=== PATIENT | male | born 1955 | race Hispanic/Latino ===

== ENCOUNTER 2020-06-11 13:23 | Inpatient (IN) | payer SELFPAY ==
[2020-06-11] VITALS (8 sets, daily range): BP systolic 115–144; BP diastolic 64–79
[~2020-06-11] VITALS: Ht 175.3 cm; Wt 81.6 kg
[2020-06-11] MEDS ORDERED: CEFTRIAXONE SOD 1 GM/NS 50 ML 50 ML IV SCH (14:00)
[2020-06-11] MEDS ORDERED: DEXAMETHASONE SOD PHOS 10 MG/1 ML VIAL IV ONE (14:00)
[2020-06-11] MEDS ORDERED: AZITHROMYCIN 500MG/NS 250 ML 250 ML IV NR (14:00)
[2020-06-11 14:32] LABS: BASOPHILS % 0.2 % (0.0-1.0); HEMATOCRIT 26.8 % (38.2-49.6); LYMPHOCYTES # (AUTO) 0.3 (1.0-3.2); LYMPHOCYTES % 5.2 % (18.0-39.1); MEAN CORPUSCULAR HEMOGLOBIN 30.7 pg (28-32); MEAN CORPUSCULAR HGB CONC 33.6 g/dL (31-35); MEAN CORPUSCULAR VOLUME 91.5 fL (81-99); MONOCYTES # (AUTO) 0.3 (0.2-0.8); MONOCYTES % 5.9 % (4.4-11.3); NEUTROPHILS # (AUTO) 4.6 (2.1-6.9); NEUTROPHILS % 87.9 % (38.7-80.0); PLATELET COUNT 114 x10e3/uL (140-360); RED BLOOD COUNT 2.93 x10e6/uL (4.3-5.7)
[2020-06-11 14:53] LABS: ALBUMIN 3.5 g/dL (3.5-5.0); ALBUMIN/GLOBULIN RATIO 0.9 (0.8-2.0); ANION GAP 18.4 mmol/L (8-16); CALCIUM 8.3 mg/dL (8.4-10.2); CREATININE, SERUM 1.62 mg/dL (0.72-1.25); POTASSIUM 3.4 mmol/L (3.5-5.1)
[2020-06-11 15:00] LABS: CREATINE KINASE MB 0.9 ng/mL (0-5.0)
[2020-06-11] MEDS ORDERED: DEXAMETHASONE SOD PHOS INJ 4 MG/ML VIAL IV ONE (15:00)
--- OUTSIDE RECORDS SUMMARY | 2020-06-11 15:00 | XMS REPORT | Clinical Summary ---
Author Author [facility] Organization [facility] Address Unknown Phone Unavailable Care Team Providers Care Emt Dispatcher Name Role Phone Mayra Treviño MD PCP Allergies Comments Active Allergy Reactions Severity Noted Date Hyperkalemia Enalapril Other 12/01/2009 Medications End Date Status Medication Sig Dispensed Refills Start Date Active blood glucose meter Use as 1 Kit 0 (PRECISION XTRA directed.. 7 GLUCOMETER)Indications: Poorly controlled diabetes mellitus Active clotrimazole (LOTRIMIN) 1 Apply to 30 g 4 % topical affected area 0 creamIndications: Nail 2 times daily fungus To nails and affected area on feet for fungus. Active glimepiride (AMARYL) 4 mg Take 2 180 tablet 1 tabletIndications: tablets by 0 Uncontrolled type 2 mouth daily diabetes mellitus without (with complication, without breakfast). long-term current use of insulin Active linaGLIPtin (TRADJENTA) 5 Take 1 tablet 90 tablet 1 mg tabletIndications: by mouth 0 Uncontrolled type 2 daily. diabetes mellitus without complication, without long-term current use of insulin Active hydroCHLOROthiazide Take 1 tablet 90 tablet 1 12/29 (HYDRODIURIL) 25 mg by mouth 0 tabletIndications: daily. Essential hypertension with goal blood pressure less than 140/90 Active amLODIPine (NORVASC) 10 Take 1 tablet 90 tablet 1 mg tabletIndications: by mouth 0 Hypertension, unspecified daily. type, Medication refill Active valsartan (DIOVAN) 80 mg Take 1 tablet 90 tablet 1 tabletIndications: by mouth 0 Essential hypertension daily. with goal blood pressure less than 140/90 Active atorvastatin (LIPITOR) 40 Take 1 tablet 90 tablet 1 mg tabletIndications: by mouth at 0 Dyslipidemia bedtime nightly. Active metFORMIN (GLUCOPHAGE) Take 1 tablet 180 tablet 1 0 1,000 mg by mouth 2 0 tabletIndications: times daily Uncontrolled type 2 (with meals). diabetes mellitus without complication, without long-term current use of insulin Active blood glucose (PRECISION Use 2 times 50 Each 11 0 XTRA TEST STRIPS) test weekly. 0 stripsIndications: Uncontrolled type 2 diabetes mellitus without complication, without long-term current use of insulin Active lancets 28 Use 2 times 100 Each 11 gaugeIndications: weekly as 0 Uncontrolled type 2 directed. diabetes mellitus without complication, without long-term current use of insulin 11/04/2019 Discontinued (Therapy comple michelle) clotrimazole (LOTRIMIN) 1 Apply to 30 g 11 % topical affected area 7 creamIndications: 2 times Onychomycosis daily. 01/18/2020 Discontinued (Reorder) lancets 28 Use 2 times 100 Each 11 gaugeIndications: weekly as 8 Uncontrolled type 2 directed. diabetes mellitus without complication, without long-term current use of insulin 07/11/2019 Discontinued blood glucose (PRECISION Use 2 times 50 Each 11 0 XTRA TEST STRIPS) test weekly. 8 stripsIndications: Uncontrolled type 2 diabetes mellitus without complication, without long-term current use of insulin 07/08/2019 Discontinued atorvastatin (LIPITOR) 40 Take 1 tablet 90 tablet 1 mg tabletIndications: by mouth at 8 Dyslipidemia bedtime nightly. 11/04/2019 Discontinued (Therapy comple michelle) naproxen (NAPROSYN) 500 Take 1 tablet 30 tablet 0 mg tabletIndications: by mouth 2 8 Pain of right heel times daily (with meals). 07/01/2019 Discontinued (Reorder) hydroCHLOROthiazide Take 1 tablet 90 tablet 1 10/31 (HYDRODIURIL) 25 mg by mouth 9 tabletIndications: daily. Essential hypertension with goal blood pressure less than 140/90 09/09/2019 Discontinued (Reorder) linagliptin (TRADJENTA) 5 Take 1 tablet 90 tablet 1 mg tabletIndications: by mouth 9 Uncontrolled type 2 daily. diabetes mellitus without complication, without long-term current use of insulin 06/17/2019 Discontinued amLODIPine (NORVASC) 10 Take 1 tablet 90 tablet 0 mg tabletIndications: by mouth 9 Hypertension, unspecified daily Please type, Medication refill see PCP for future refills. 07/08/2019 Discontinued glimepiride (AMARYL) 4 mg Take 2 180 tablet 0 tabletIndications: tablets by 9 Uncontrolled type 2 mouth daily diabetes mellitus without (with complication, without breakfast). long-term current use of insulin 08/07/2019 Discontinued (Reorder) metFORMIN (GLUCOPHAGE) Take 1 tablet 180 tablet 0 0 1,000 mg by mouth 2 9 tabletIndications: times daily Uncontrolled type 2 (with meals) diabetes mellitus without PLEASE see complication, without PCP for long-term current use of future insulin refills. 08/12/2019 Discontinued Valsartan 80 mg Take 1 tablet 90 tablet 0 05/14/20 1 tabletIndications: by mouth 9 Essential hypertension daily PLEASE with goal blood pressure see PCP for less than 140/90 future refills. 10/11/2019 Discontinued (Reorder) amLODIPine (NORVASC) 10 Take 1 tablet 90 tablet 0 mg tabletIndications: by mouth 9 Hypertension, unspecified daily Please type, Medication refill see PCP for future refills. 10/11/2019 Discontinued (Reorder) hydroCHLOROthiazide Take 1 tablet 90 tablet 0 (HYDRODIURIL) 25 mg by mouth 9 tabletIndications: daily. Essential hypertension with goal blood pressure less than 140/90 08/05/2019 Discontinued (Reorder) atorvastatin (LIPITOR) 40 Take 1 tablet 30 tablet 0 mg tabletIndications: by mouth at 9 Dyslipidemia bedtime nightly Please see pcp for future refills. 08/12/2019 Discontinued glimepiride (AMARYL) 4 mg Take 2 60 tablet 0 tabletIndications: tablets by 9 Uncontrolled type 2 mouth daily diabetes mellitus without (with complication, without breakfast) long-term current use of Please see insulin pcp for future refills. 01/18/2020 Discontinued (Reorder) blood glucose (PRECISION Use 2 times 50 Each 1 0 XTRA TEST STRIPS) test weekly. 9 stripsIndications: Uncontrolled type 2 diabetes mellitus without complication, without long-term current use of insulin 10/11/2019 Discontinued (Reorder) atorvastatin (LIPITOR) 40 Take 1 tablet 30 tablet 0 mg tabletIndications: by mouth at 9 Dyslipidemia bedtime nightly Please see pcp for future refills. 10/11/2019 Discontinued (Reorder) metFORMIN (GLUCOPHAGE) Take 1 tablet 120 tablet 0 1 1,000 mg by mouth 2 9 tabletIndications: times daily Uncontrolled type 2 (with meals) diabetes mellitus without PLEASE see MD complication, without for future long-term current use of refills. insulin 10/11/2019 Discontinued (Reorder) valsartan (DIOVAN) 80 mg Take 1 tablet 30 tablet 0 tabletIndications: by mouth 9 Essential hypertension daily PLEASE with goal blood pressure see PCP for less than 140/90 future refills. 09/10/2019 Discontinued glimepiride (AMARYL) 4 mg Take 2 60 tablet 0 tabletIndications: tablets by 9 Uncontrolled type 2 mouth daily diabetes mellitus without (with complication, without breakfast) long-term current use of Please see insulin pcp for future refills. 10/11/2019 Discontinued (Reorder) linaGLIPtin (TRADJENTA) 5 Take 1 tablet 90 tablet 1 mg tabletIndications: by mouth 9 Uncontrolled type 2 daily. diabetes mellitus without complication, without long-term current use of insulin 10/11/2019 Discontinued (Reorder) glimepiride (AMARYL) 4 mg Take 2 60 tablet 0 tabletIndications: tablets by 9 Uncontrolled type 2 mouth daily diabetes mellitus without (with complication, without breakfast) long-term current use of Please see insulin pcp for future refills. 01/18/2020 Discontinued (Reorder) glimepiride (AMARYL) 4 mg Take 2 180 tablet 1 tabletIndications: tablets by 9 Uncontrolled type 2 mouth daily diabetes mellitus without (with complication, without breakfast) long-term current use of Please see insulin pcp for future refills. 01/18/2020 Discontinued (Reorder) linaGLIPtin (TRADJENTA) 5 Take 1 tablet 90 tablet 1 mg tabletIndications: by mouth 9 Uncontrolled type 2 daily. diabetes mellitus without complication, without long-term current use of insulin 01/18/2020 Discontinued (Reorder) hydroCHLOROthiazide Take 1 tablet 90 tablet 1 09/29 (HYDRODIURIL) 25 mg by mouth 9 tabletIndications: daily. Essential hypertension with goal blood pressure less than 140/90 01/18/2020 Discontinued (Reorder) amLODIPine (NORVASC) 10 Take 1 tablet 90 tablet 1 mg tabletIndications: by mouth 9 Hypertension, unspecified daily Please type, Medication refill see PCP for future refills. 01/18/2020 Discontinued (Reorder) valsartan (DIOVAN) 80 mg Take 1 tablet 90 tablet 1 tabletIndications: by mouth 9 Essential hypertension daily PLEASE with goal blood pressure see PCP for less than 140/90 future refills. 01/18/2020 Discontinued (Reorder) atorvastatin (LIPITOR) 40 Take 1 tablet 90 tablet 1 mg tabletIndications: by mouth at 9 Dyslipidemia bedtime nightly Please see pcp for future refills. 01/18/2020 Discontinued (Reorder) metFORMIN (GLUCOPHAGE) Take 1 tablet 180 tablet 1 1 1,000 mg by mouth 2 9 tabletIndications: times daily Uncontrolled type 2 (with meals) diabetes mellitus without PLEASE see MD complication, without for future long-term current use of refills. insulin Active Problems Problem Noted Date Hypertensive retinopathy of both eyes 11/08/2019 Proliferative diabetic retinopathy of both eyes with macular edema 10/14/2019 associated with type 2 diabetes mellitu s Combined form of age-related cataract, right eye Personal history of noncompliance with medical treatm ent, presenting 05/30/2018 hazards to health - PT WAS SEEN BY GI - ADVISED COLONOSCOPY - DECLINED, WAS ADVISED BE BY GI - NOT DONE EITHER - PL EASE CALL GI Hyperkalemia 05/11/2018 Poorly controlled diabetes mellitus 03/14/2017 Nuclear cataract of left eye 01/26/2017 Erectile dysfunction 10/15/2009 Type II diabetes mellitus Essential hypertension, benign Other and unspecified hyperlipidemia Proteinuria Resolved Problems Problem Noted Date Resolved Date NPDR (nonproliferative diabetic retinopathy) 11/24/2016 10/14/2019 Severe nonproliferative diabetic retinopathy of both eyes, due to 06/28/2016 10/14/2019 underlying condition, with macular aries a Encounters Care Team Description Date Type Specialty Sheryl Schultz RN 06/08/2020 Nurse Triage Claudia Schmid RN 06/08/2020 Nurse Triage Yessica Preciado, NERY 06/06/2020 Nurse Triage Chana Lemus 05/21/2020 Patient Patient Education Education Wm Ravi, Fellow(MD) Anemia, unspecified type (Primary Dx) 04/20/2020 Office Visit Hematology Wm Ravi, Fellow(MD) 04/19/2020 Orders Only Hematology Carine Razo, MYRA 03/11/2020 Antwan Jones RN 03/10/2020 Patient Patient Education Education Carine Razo LD 02/20/2020 Nutrition Remi Harris Kylee 02/18/2020 Nutrition Carine Walker LD 01/29/2020 Antwan Jones RN 01/28/2020 Patient Patient Education Education Harish Ngo MD Proliferative diabetic retinopathy of naveed th eyes with macular edema associated with type 2 diabetes mellitus (Primary Dx) 01/17/2020 Office Visit Ophthalmology Kylee Harris 01/07/2020 Harihs Apple MD Proliferative diabetic retinopathy of naveed th eyes with macular edema associated with type 2 diabetes mellitus (Primary Dx) 12/30/2019 Office Visit Ophthalmology Kylee Harris 12/24/2019 Nutrition Mayra Parry MD Uncontrolled diabetes mellitus type 2 wi thout complications (Primary Dx); Anemia, unspecified type; Nail fungus 12/16/2019 Office Visit [facility] Kylee Harris 12/10/2019 Antwan Jones RN 11/28/2019 Patient Patient Education Education Kylee Harris 11/12/2019 Harish Apple MD Proliferative diabetic retinopathy of naveed th eyes with macular edema associated with type 2 diabetes mellitus (Primary Dx) 11/11/2019 Office Visit Ophthalmology Dipesh Mclean MD Proliferative diabetic retinopathy of naveed th eyes with macular edema associated with type 2 diabetes mellitus (Primary Dx); Combined form of age-related cataract, right eye; Hypertensive retinopathy of both eyes 11/08/2019 Office Visit Ophthalmology Mayra Treviño MD Need for vaccination (Primary Dx); Occult blood positive stool; Anemia, unspecified type 11/04/2019 Office Visit [facility] Antwan Lynch RN 10/31/2019 Patient Patient Education Education Lourdes Medel MD Uncontrolled type 2 diabetes mellitus wi thout complication, without long-term current use of insulin; Dyslipidemia 10/18/2019 Lab Appointment Lab Harish Ngo MD Butner, Robert W, MD Combined form of age-related cataract, r ight eye (Primary Dx); Proliferative diabetic retinopathy of both eyes with macular edema associated with type 2 diabetes mellitus 10/14/2019 Office Visit Ophthalmology Lourdes Medel MD Need for influenza vaccination (Primary Dx); Uncontrolled type 2 diabetes mellitus without complication, without long-term current use of insulin; Essential hypertension with goal blood pressure less than 140/90; Hypertension, unspecified type; Medication refill; Dyslipidemia 10/11/2019 Office Visit Family Practice Mayra Treviño MD Medications 10/03/2019 Refill Family Practice Mayra Treviño MD Medications 09/30/2019 Refill Family Practice Mayra Treviño MD Medications 09/10/2019 Refill Family Practice Mayra Treviño MD Medications 09/09/2019 Refill Family Practice Mayra Treviño MD Medications 08/12/2019 Refill Family Practice Mayra Treviño MD Medications 08/07/2019 Refill Family Practice Mayra Treviño MD Medications 08/05/2019 Refill Family Practice Mayra Treviño MD Medications 07/11/2019 Refill Family Practice Mayra Treviño MD Medications 07/08/2019 Refill Family Practice Mayra Treviño MD Medications 07/01/2019 Refill Family Practice Mayra Treviño MD Medications 06/17/2019 Refill Family Practice after 06/11/2019 Immunizations Name Administration Dates Next Due Herpes Zoster Vaccine In 05/30/2018 Clinic Influenza Vaccine 10/05/2018 (Deferred: Patie nt Refused), 09/10/2009 (Deferred: Unavailable-Patient to retur n for vaccine later) Influenza Vaccine, 09/01/2017 Seasonal, Injectable Influenza, Injectable, 12/16/2019, 10/11/2019 (Def erred: Other - patient Quadrivalent will ask next dr visit he i s going to think about it.) PCV 13 (Pnuemococcal 12/16/2019 Conjugated 13 Valent) PPV 23 Pneumococcal 09/10/2009 Polysaccaride Td Tetanus, diphtheria 09/10/2007 Toxoids Vaccine Tdap (Tetanus Toxoid, 12/16/2019 (Deferred: Patie nt Refused - does not Reduced Diphtheria Toxoid want 3 vaccines in one day ) And Acellular Pertussis, Absorbed) Family History Medical History Relation Name Comments Diabetes Mother Relation Name Status Comments Brother Alive x3 Father Alive Mother Alive Sister Alive x4 Social History Date Tobacco Use Types Packs/Day Years Used Never Smoker Smokeless Tobacco: Never Used Tobacco Cessation: Counseling Given: No Drinks/Week oz/Week Comments Alcohol Use 6 Cans of beer 5.0 drinks every week Yes Food Insecurity Answer Date Recorded Within the past 12 months, you worried that your Often vaughn e 10/11/2019 food would run out before you got money to buy more. Within the past 12 months, the food you bought Often true 10/11/2019 just didn't last and you didn't have mo salvatore to get more. Sex Assigned at Date Recorded Not on file Industry Job Start Date Occupation Not on file Not on file Not on file Travel End Travel History Travel Start No recent travel history available. Date Recorded COVID-19 Exposure Response 06/09/2020 9:00 AM CDT In the last month, have you been in contact with Yes someone who was confirmed or suspected to have Coronavirus / COVID-19? Last Filed Vital Signs Reading Time Taken Comments Vital Sign 164/69 04/20/2020 2:26 PM CDT Blood Pressure 80 04/20/2020 2:26 PM CDT Pulse 36.6 C (97.9 F) 04/20/2020 2:26 PM CDT Temperature 18 12/16/2019 9:08 AM EQUIPMENT OPERATOR/LABORER Respiratory Rate 100% 10/14/2019 10:13 AM EQUIPMENT OPERATOR/LABORER Oxygen Saturation - - Inhaled Oxygen Concentration 84.8 kg (187 lb) 04/20/2020 2:26 PM CDT Weight 172.7 cm (5' 8") 12/16/2019 9:08 AM EQUIPMENT OPERATOR/LABORER Height 28.43 12/16/2019 9:08 AM EQUIPMENT OPERATOR/LABORER Body Mass Index Plan of Treatment Care Team Description Date Type Specialty Mayra Treviño MD [address] [place] [address] [phone] Tested positive for COVID 19 on 06/05/20 20; ER; [employer] Worker needed 06/15/2020 Telephonic Family Practice Encounter 07/07/2020 Lab Appointment Lab Wm Ravi, Fellow() [address] [place] [address] Breonna/ labs done 07/07, per MD? 07/20/2020 Office Visit Hematology Health Maintenance Due Date Last Done Comments Colorectal Cancer Scrn 10/24/2020 10/24/2019, Annual (FIT/FOBT) Age 49 09/11/2017, to 74 02/29/2016, Additional history exists DM Foot Exam (Yearly) 12/16/2020 12/16/2019, 02/08/2019, 05/30/2018, Additional history exists DM HGBA1C (Yearly) 01/05/2021 01/06/2020, 10/18/2019, 11/20/2018, Additional history exists DM Retinal Exam (Yearly) 01/16/2021 01/17/2020, 12/30/2019, 11/11/2019, Additional history exists IMM Pneumococcal Age 64 Completed 12/16/2019 and Up Goals Goal Patient Associated Recent Progress Patient-Stat Aut hor Goal Type Problems ed? Use plate model Diet On track (03/11/2020 No V illatoro, 3:45 PM CDT) Antwan Wharton RN Note: Make better food choices, Reduce portion sizes and Follow meal plan Have 3 meals a day Diet On track (03/11/2020 No Prideaux, 3:45 PM CDT) Kylee LOWER BLOOD GLUCOSE Lifestyle Not on track No Sierr a, Raisa (03/11/2020 3:42 PM G, RN CDT) Exercise Regularly Self Not on track No Jeimy , Raisa management (03/11/2020 3:42 PM G, RN CDT) Eat more non-starchy Self On track (03/11/2020 No Prideaux, vegetables management 3:45 PM CDT) Kylee Implants Device Identifier Shelf Expiration Date Model / Serial / L ot Implanted Type Area Manufactur er 09/21/2020 / [id number] / Implant [employer] 1 Piece Implant Left: Eye(s) [id number] 22.5d - [id number] eye Implanted: Qty: 1 on 01/25/2017 by Caleb Norris MD at [facility] Procedures Comments Procedure Name Priority Date/Time Associated Diag nosis SAVE SMEAR/ NOT FOR PATH Add-on 04/20/2020 Anemi a, unspecified type REVIEW 1:59 PM CDT FERRITIN Add-on 04/20/2020 Anemia, unspeci fied type 1:59 PM CDT ELECTROPH, BLD Add-on 04/20/2020 Anemia, unspeci fied type 1:59 PM CDT CBC Routine 04/20/2020 Type 2 diabetes mellitus 1:59 PM CDT with microalbuminuria, without long-term current use of insulin COMPREHENSIVE METABOLIC Routine 04/20/2020 Type 2 diabetes mellitus PANEL 1:59 PM CDT with microalbuminur ia, without long-term current use of insulin CBC/DIFF Routine 04/20/2020 Type 2 diabetes mellitus 1:59 PM CDT with microalbuminuria, without long-term current use of insulin HEMOGLOBIN A1C Routine 01/06/2020 Uncontrolled di abetes 10:36 AM CDT mellitus type 2 without complications BASIC METABOLIC PANEL Routine 01/06/2020 Uncontro lled diabetes 10:36 AM CDT mellitus type 2 without complications GLUCOSE POC Routine 12/16/2019 10:31 AM EQUIPMENT OPERATOR/LABORER DIABETIC FOOT EXAM Routine 12/16/2019 Uncontrolle d diabetes 10:29 AM EQUIPMENT OPERATOR/LABORER mellitus type 2 without complications DESTRUCTION OF EXTENSIVE Routine 11/08/2019 Proli ferative diabetic OR PROGRESSIVE 3:12 PM EQUIPMENT OPERATOR/LABORER retinopathy of both eyes RETINOPATHY PHOTOCOAG with macular edema (LASER OR XENON ARC) associated with type 2 diabetes mellitus FOLIC ACID Routine 11/04/2019 Anemia, unspeci fied type 10:15 AM EQUIPMENT OPERATOR/LABORER VITAMIN B12 Routine 11/04/2019 Anemia, unspeci fied type 10:15 AM EQUIPMENT OPERATOR/LABORER IRON PROFILE Routine 11/04/2019 Anemia, unspeci fied type 10:15 AM EQUIPMENT OPERATOR/LABORER FERRITIN Routine 11/04/2019 Anemia, unspeci fied type 10:15 AM EQUIPMENT OPERATOR/LABORER FECAL OCCULT BLOOD Routine 10/24/2019 Uncontrolle d type 2 9:52 AM EQUIPMENT OPERATOR/LABORER diabetes mellitus without complication, without long-term current use of insulin CBC Routine 10/18/2019 Uncontrolled ty pe 2 8:54 AM EQUIPMENT OPERATOR/LABORER diabetes mellitus without complication, without long-term current use of insulin LIPID PROFILE Routine 10/18/2019 Dyslipidemia 8:54 AM EQUIPMENT OPERATOR/LABORER MICROALBUMIN / CREATININE Routine 10/18/2019 Unco ntrolled type 2 URINE RATIO 8:54 AM EQUIPMENT OPERATOR/LABORER diabetes mellitus w ithout complication, without long-term current use of insulin COMPREHENSIVE METABOLIC Routine 10/18/2019 Uncont rolled type 2 PANEL 8:54 AM EQUIPMENT OPERATOR/LABORER diabetes mellitus w ithout complication, without long-term current use of insulin CBC/DIFF Routine 10/18/2019 Uncontrolled ty pe 2 8:54 AM EQUIPMENT OPERATOR/LABORER diabetes mellitus without complication, without long-term current use of insulin HEMOGLOBIN A1C Routine 10/18/2019 Uncontrolled ty pe 2 8:54 AM EQUIPMENT OPERATOR/LABORER diabetes mellitus without complication, without long-term current use of insulin after 06/11/2019 Results * CBC/Diff (04/20/2020 1:59 PM CDT) Only the most recent of 2 results within the time period is included. WBC 7.3 4.5 - 12.0 K/uL [facility] RBC 4.06 (L) 4.60 - 6.20 M/uL [facility] Hemoglobin 12.7 (L) 14.0 - 18.0 g/dL [facility] Hematocrit 38.0 (L) 40.0 - 54.0 % [facility] MCV 93.6 (H) 82.0 - 92.0 fL [facility] MCH 31.3 (H) 27.0 - 31.0 pg [facility] MCHC 33.4 32.0 - 36.0 g/dL [facility] RDW 42.8 35.1 - 43.9 fL [facility] Platelet 251 150 - 400 K/uL [facility] Mean Platelet 9.9 9.4 - 12.4 fL [facility] Volume LAB Neutrophil 73.8 (H) 34.0 - 67.9 % [facility] Lymphs 14.0 (L) 21.8 - 50.0 % [facility] Monocytes 9.1 5.3 - 12.0 % [facility] Eos 2.6 0.8 - 5.0 % [facility] Basos 0.5 0.2 - 1.2 % [facility] Immature 0.3 0.0 - 0.5 % [facility] Granulocytes LAB Neutrophils 5.37 (H) 1.78 - 5.36 K/uL [facility] (Absolute) LAB Lymphs 1.02 (L) 1.32 - 3.57 K/uL [facility] (Absolute) LAB Monocytes(Absol 0.66 0.30 - 0.82 K/uL [facility] [place]on) LAB Eos (Absolute) 0.19 0.04 - 0.54 K/uL [facility] Baso (Absolute) 0.04 0.01 - 0.08 K/uL [facility] Immature Grans 0.02 0.00 - 0.03 K/uL [facility] (Abs) LAB Specimen Blood Performing Organization Address City/[facility] Ph one Number [facility] [place] [address] [phone] [facility] [address] [address] * Save Smear (04/20/2020 1:59 PM CDT) [facility] Save Smear Smear stained and available [facility] for review LAB Specimen Blood Performing Organization Address City/State/Zipcode Ph one Number [facility] [place] [address] [facility] [address] [address] * Comprehensive Metabolic Panel (04/20/2020 1:59 PM CDT) Only the most recent of 2 results within the time period is included. [facility] Sodium 135 (L) 136 - 145 mmol/L [facility] Potassium 4.7 3.5 - 5.1 mmol/L [facility] Chloride 102 98 - 107 mmol/L [facility] CO2 25 21 - 31 mmol/L [facility] Glucose 353 (H) 70 - 110 mg/dL [facility] Calcium 9.9 8.6 - 10.3 mg/dL [facility] Urea Nitrogen 29.0 (H) 7.0 - 25.0 mg/dL [facility] Creatinine 1.0 0.7 - 1.3 mg/dL [facility] Alkaline 73 34 - 104 U/L [facility] HEALTH Phosphatase LAB ALT 22 7 - 52 U/L [facility] AST 18 13 - 39 U/L [facility] Bilirubin, 0.4 0.2 - 1.2 mg/dL [facility] Total LAB Total Protein 7.2 6.0 - 8.3 g/dL [facility] GFR, Estimated 75 (L) >=90 mL/min/1.73 m2 [facility] IC LAB Albumin 4.5 4.2 - 5.5 g/dL [facility] Anion Gap 8 5 - 16 mmol/L [facility] Specimen Blood Performing Organization Address [facility] one Number [facility] [place] [address] [phone] [facility] [address] [place] [address] [phone] * Ferritin (04/20/2020 1:59 PM CDT) Only the most recent of 2 results within the time period is included. [facility] Ferritin 100.9 23.9 - 336.2 ng/mL [facility] Specimen Blood Performing Organization Address [facility] one Number [facility] [address] [place] [address] [phone] * Electroph, Bld (04/20/2020 1:59 PM CDT) [facility] COMMENT Increased albumin and total [facility] protein consistent with LABORATORY dehydration. Katie Grider M.D., PhD., Pathologist/[facility] ([id number]) [id number] Protein Comment: 7.2 [facility] Specimen Blood Performing Organization Address [facility] one Number [facility] [address] [place] [address] * Hemoglobin A1C (01/06/2020 10:36 AM CDT) Only the most recent of 2 results within the time period is included. Pathologist [facility] Hemoglobin A1c 8.6 (H) 4.3 - 6.1 % [facility] Estimated 200 (H) 70 - 110 mg/dL [facility] Average Glucose LABORATORY Specimen Blood Performing Organization Address [facility] one Number [facility] [address] [place] [address] [phone] * Basic Metabolic Panel (01/06/2020 10:36 AM CDT) [facility] Sodium 139 136 - 145 mmol/L [facility] Potassium 4.8 3.5 - 5.1 mmol/L [facility] Chloride 102 98 - 107 mmol/L [facility] CO2 29 21 - 31 mmol/L [facility] Urea Nitrogen 25.0 7.0 - 25.0 mg/dL [facility] Creatinine 1.1 0.7 - 1.3 mg/dL [facility] Glucose 311 (H) 70 - 110 mg/dL [facility] Calcium 9.2 8.6 - 10.3 mg/dL [facility] GFR, Estimated 67 (L) >=90 mL/min/1.73 m2 [facility] Anion Gap 8 5 - 16 mmol/L [facility] Specimen Blood Performing Organization Address [facility] one Number [facility] [address] [place] [address] * POCT GLUCOSE POC docked device (12/16/2019 10:31 AM EQUIPMENT OPERATOR/LABORER) [facility] Glucose POC 261 (H) 74 - 106 mg/dL [facility] Specimen Blood Performing Organization Address [facility] one Number [facility] [address] [place] [address] [facility] * DIABETIC FOOT EXAM (12/16/2019 10:29 AM EQUIPMENT OPERATOR/LABORER) Narrative Performed At Mayra Treviño MD 12/16/2019 11:1 8 AM Diabetic Foot Exam was performed at 11/30 10:29 AM. Right foot sensation is normal, right foot pulses are normal, right foot appearance is abnormal. Left foot sensation is n ormal, left foot pulses are normal, left foot appearance is abnormal. Nail fungus noted * Folic Acid (11/04/2019 10:15 AM EQUIPMENT OPERATOR/LABORER) Folic Acid 11.6 5.9 - 24.8 ng/mL [facility] Specimen Blood Performing Organization Address [facility] one Number [facility] [address] [place] [address] [phone] * Vitamin B12 (11/04/2019 10:15 AM EQUIPMENT OPERATOR/LABORER) Pathologist [facility] Vitamin B12 550 See comment pg/mL [facility] Comment: LABORATORY Normal: 180-914 pg/mL Intermittent: 145-180 pg/mL Deficient: <=145.0 pg/mL Specimen Blood Performing Organization Address [facility] one Number [facility] [address] [place] [address] [phone] * Iron Profile (11/04/2019 10:15 AM EQUIPMENT OPERATOR/LABORER) Pathologist [facility] Iron 104 50 - 212 ug/dL [facility] TIBC 317 250 - 450 ug/dL [facility] % Iron Sat 33 % [facility] Transferrin 226.52 203.00 - 362.00 [facility] mg/dL [facility] Specimen Blood Performing Organization Address [facility] one Number [facility] [address] [place] [address] * Fecal Occult Blood (10/24/2019 9:52 AM EQUIPMENT OPERATOR/LABORER) [facility] Occult Blood Negative Negative [facility] Specimen Stool - Feces Performing Organization Address [facility] one Number [facility] [address] [place] [phone] [facility] * Microalb/Crea Ratio,Ur (10/18/2019 8:54 AM EQUIPMENT OPERATOR/LABORER) Pathologist [facility] Microalbumin, 26.5 <30.0 mg/dL [facility] Random [facility] Creatinine, 115 20 - 370 mg/dL [facility] Urine [facility]OR[facility]ORY Urine 230.4 (H) 0.0 - 30.0 mg/g [facility] Microalbumin [facility]ORY Specimen Urine - Voided, urine Performing Organization Address [facility] one Number [facility] [address] [place] [address] [phone] * Lipid Profile (10/18/2019 8:54 AM EQUIPMENT OPERATOR/LABORER) Cholesterol 112.0 <=200.0 mg/dL [facility] Triglyceride 112 <150 mg/dL [facility] HDL 41.0 See Reference Range [facility] Narrative. mg/dL LABORATORY LDL 49 <100 mg/dL [facility] Comment: LABORATORY Optimal: < 100.0 mg/dL Near Optimal: 120-129 mg/dL Borderline: 130-159 mg/dL High: 160-189 mg/dL Very High: >=190 mg/dL Patient Yes [facility] Fasting? LABORATORY Specimen Blood Performing Organization Address City/State/Zipcode Ph one Number [facility] [address] [place] [address] after 06/11/2019 Additional Health Concerns Last Indicated Resolved Time Infection Onset Date 06/08/2020 Covid-19 06/05/2020 Insurance Type Payer Benefit Subscriber ID Effective Phone Address Plan / Dates Group [employer] xxxxxx 2019- [phone] [id number] [facility] [address] [place] [address] [phone]
--- OUTSIDE RECORDS SUMMARY | 2020-06-11 15:00 | XMS REPORT | Continuity of Care Document ---
Author Author [facility] t Organization [facility] Address [address] [place] [address] Phone Unavailable Care Team Providers Care Remedy Developer Name Role Phone Hudson ALVARADO, P Mayra PCP Antoine RN, Renetta Scruggsphys Unavailable Binu GABRIEL, Tianna Taylor Attphys Unavailable Ozzy RN, Priyanka Juan Attphys Unavailable Allan, T Chana Attphys Unavailable Sun Fellow(MD), Wm Attphys Dung RENTERIA, Carine Attphys Unavailable Syed GABRIEL, Akiko Moncada Attphys Unavailable Kylee Harris Attphys Unavailable Huber ALVARADO, Citlaly Moreira Attphys Hudson ALVARADO, P Mayra Attphys Vinay ALVARADO, A Dipesh Attphys Gianfranco ALVARADO, Malia Freed Attphys Delmy ALVARADO, W Andres Attphys Payers Payer Name Policy Type Policy Number Effective Date Expiration Date S [facility] PLANFINANCIAL ASSISTANCE PROGRAMxxx xx2019-10/29/[id number] [place] [address] xxxxxx 2019 00:00:00 2019-10 23:59:59 [facility] Problems Condition Name Condition Details Condition Category Status Onset Date Resolution Date Last Treatment Date Treating Clinician Comments Source Hypertensive retinopathy of both eyes Hypertensive retinopat hy of both eyes Disease Active 2019-11-08 00:00:00 [facility] 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 type 2 diabetes mellitus Disease Active 2019-10-14 00:00:00 Ata de la rosa Combined form of age-related cataract, right eye Combi marcelino form of age-related cataract, right eye Disease Active 2018-10-29 00:00:00 [facility] Personal history of noncompliance with m edical treatment, presenting hazards to health - PT WAS SEEN BY GI - ADVISED COLONOSCOPY - DECLINED, WAS ADVISED BE BY GI - NOT DONE EITHER - PLEASE CALL GI Personal history of noncompliance with medical treatment, presenting hazards to health - PT WAS SEEN BY GI - ADVISED COLONOSCOPY - DECLINED, WAS ADVISED BE BY GI - NOT DONE EITHER - PLEASE CALL GI Disease Active 2018-05-30 00:00:00 [facility] Hyperkalemia Hyperkalemia Disease Active 2018-05-11 00:00:00 [facility] Poorly controlled diabetes mellitus Poorly controlled diabetes m ellitus Disease Active 2017-03-14 00:00:00 [facility] Nuclear cataract of left eye Nuclear cataract of left eye Disease Active 2017-01-26 00:00:00 [facility] Erectile dysfunction Erectile dysfunction Disease Active 00:00:00 [facility] Type II diabetes mellitus Type II diabetes mellitus Disease Active [facility] Essential hypertension, benign Essential hypertension, benign Disease Active [facility] Other and unspecified hyperlipidemia Other and unspecified h yperlipidemia Disease Active [facility] lt Proteinuria Proteinuria Disease Active [facility] History of Past Illness Condition Name Condition Details Condition Category Status Onset Date Resolution Date Last Treatment Date Treating Clinician Comments Source NPDR (nonproliferative diabetic retinopathy) NPDR (non proliferative diabetic retinopathy) Disease Resolved 2016-11-24 00:00:00 2019-10-14 00:00:00 2 10:20:18 [facility] Severe nonproliferative diabetic retinop athy of both eyes, due to underlying condition, with macular edema Severe nonproliferative diabetic retinop athy of both eyes, due to underlying condition, with macular edema Disease R esolved 2016-06-28 00:00:00 2019-10-14 00:00:00 2019-10-14 10:20:16 [facility] Allergies, Adverse Reactions, Alerts Allergy Name Allergy Type Status Severity Reaction(s) Onset Date Inacti ve Date Treating Clinician Comments Source Enalapril Propensity to adverse reactions to drug Active Other 2009-12-01 00:00:00 Hyperkalemia [facility] Family History Family Member Diagnosis Comments Start Date Stop Date Source Natural mother Diabetes Ata Martinez [facility] Social History Social Habit Start Date Stop Date Quantity Comments Source Sex Assigned At [facility] Exposure to SARS-CoV-2 (event) Yes [facility] Alcohol intake 2020-04-20 00:00:00 2020-04-20 00:00:00 Current drinker of alcohol (finding) [facility] SDOH Food Worry 2019-10-11 00:00:00 2019-10-11 00:00:00 3 [facility] History SDOH Food Scarcity 2019-10-11 00:00:00 2019-10-11 00:00:00 3 [facility] Alcohol Comment 2009-09-10 00:00:00 2009-09-10 00:00:00 drinks every week [facility] Smoking Status Start Date Stop Date Source Never smoker [facility] Medications Ordered Medication Name Filled Medication Name Start Date Stop Da te Current Medication? Ordering Clinician Indication Dosage Frequency Signature (SIG) Comments Components Source glimepiride (AMARYL) 4 mg tablet 2020-01-18 00:00:00 Yes Uncontrolled type 2 diabetes mellitus without complication, without long-term current use of insulin 8mg QD Take 2 tablets by mouth daily (with breakfast). [facility] linaGLIPtin (TRADJENTA) 5 mg tablet 2020-01-18 00:00:00 Yes Uncontrolled type 2 diabetes mellitus without complication, without long-term current use of insulin 5mg QD Take 1 tablet by mouth daily. [facility] hydroCHLOROthiazide (HYDRODIURIL) 25 mg tablet 2020-01-18 00 :00:00 Yes Essential hypertension with goal blood pressure less than 140/90 25mg QD Take 1 tablet by mouth daily. [facility] amLODIPine (NORVASC) 10 mg tablet 2020-01-18 00:00:00 Yes Medication refill 10mg QD Take 1 tablet by mouth daily. [facility] valsartan (DIOVAN) 80 mg tablet 2020-01-18 00:00:00 Yes Essential hypertension with goal blood pressure less than 140/90 80mg QD Take 1 tablet by mouth daily. [facility] atorvastatin (LIPITOR) 40 mg tablet 2020-01-18 00:00:00 Yes Dyslipidemia 40mg Take 1 tablet by mouth at bedtime nightly. [facility] metFORMIN (GLUCOPHAGE) 1,000 mg tablet 2020-01-18 00:00:00 Yes Uncontrolled type 2 diabetes mellitus without complication, without long-term current use of insulin 1000mg Take 1 tablet by mouth 2 times daily (with meals). [facility] blood glucose (PRECISION XTRA TEST STRIPS) test strips 2020-01-18 00:00:00 Yes Uncontrolled type 2 diabetes mellitus without complication, without long- term current use of insulin Use 2 times weekly. [facility] lancets 28 gauge 2020-01-18 00:00:00 Yes Uncontrolled type 2 diabetes mellitus without complication, without long-term current use of insulin Use 2 times weekly as directed. [facility] clotrimazole (LOTRIMIN) 1 % topical cream 2019-12-16 00:00:0 0 Yes Nail fungus Q.5D Apply to affected ar ea 2 times daily To nails and affected area on feet for fungus. [facility] glimepiride (AMARYL) 4 mg tablet 2019-10-11 00:00:00 2019-12 00:00:00 No Uncontrolled type 2 diabetes mellitus without complication, without long-term current use of insulin 8mg QD Take 2 tablets by mouth daily (with breakfast) Please see pcp for future refills. [facility] linaGLIPtin (TRADJENTA) 5 mg tablet 2019-10-11 00:00:0 0 2020-01-18 00:00:00 No Uncontrolled type 2 diabetes mellitus without complication, without long-term current use of insulin 5mg QD Take 1 tablet by mouth daily. [facility] hydroCHLOROthiazide (HYDRODIURIL) 25 mg tablet 2 00:00:00 2020-01-18 00:00:00 No Essential hypertension with goal blood pressure less than 140/90 25mg QD Take 1 tablet by mouth daily. [facility] amLODIPine (NORVASC) 10 mg tablet 2019-10-11 00:00:00 2019 00:00:00 No Medication refill 10mg QD Take 1 tablet by mouth daily Please see PCP for future refills. [facility] valsartan (DIOVAN) 80 mg tablet 2019-10-11 00:00:00 00:00:00 No Essential hypertension with goal blood pressure less than 140/90 80mg QD Take 1 tablet by mouth daily PLEASE see PCP for future refills. [facility] atorvastatin (LIPITOR) 40 mg tablet 2019-10-11 00:00:0 0 2020-01-18 00:00:00 No Dyslipidemia 40mg Take 1 tablet b y mouth at bedtime nightly Please see pcp for future refills. [facility] metFORMIN (GLUCOPHAGE) 1,000 mg tablet 2019-09-29 3 00:00:00 2020-01-18 00:00:00 No Uncontrolled type 2 diabetes mellitus without complication, without long- term current use of insulin 1000mg Take 1 table t by mouth 2 times daily (with meals) PLEASE see MD for future refills. [facility] glimepiride (AMARYL) 4 mg tablet 2019-09-11 00:00:00 2019-09 00:00:00 No Uncontrolled type 2 diabetes mellitus without complication, without long-term current use of insulin 8mg QD Take 2 tablets by mouth daily (with breakfast) Please see pcp for future refills. [facility] [employer] linaGLIPtin (TRADJENTA) 5 mg tablet 2019-09-09 00:00:0 0 2019-10-11 00:00:00 No Uncontrolled type 2 diabetes mellitus without complication, without long-term current use of insulin 5mg QD Take 1 tablet by mouth daily. [facility] valsartan (DIOVAN) 80 mg tablet 2019-08-13 00:00:00 00:00:00 No Essential hypertension with goal blood pressure less than 140/90 80mg QD Take 1 tablet by mouth daily PLEASE see PCP for future refills. [facility] glimepiride (AMARYL) 4 mg tablet 2019-08-13 00:00:00 2019-08 00:00:00 No Uncontrolled type 2 diabetes mellitus without complication, without long-term current use of insulin 8mg QD Take 2 tablets by mouth daily (with breakfast) Please see pcp for future refills. [facility] metFORMIN (GLUCOPHAGE) 1,000 mg tablet 2019-07-30 0 00:00:00 2019-10-11 00:00:00 No Uncontrolled type 2 diabetes mellitus without complication, without long- term current use of insulin 1000mg Take 1 table t by mouth 2 times daily (with meals) PLEASE see MD for future refills. [facility] atorvastatin (LIPITOR) 40 mg tablet 2019-08-07 00:00:0 0 2019-10-11 00:00:00 No Dyslipidemia 40mg Take 1 tablet b y mouth at bedtime nightly Please see pcp for future refills. [facility] blood glucose (PRECISION XTRA TEST STRIPS) test strips 2019-07-12 00:00:00 2020-01-18 00:00:00 No Uncontrolled type 2 diabetes mellitus without complication, without long-term current use of insulin Use 2 times weekly. [facility] glimepiride (AMARYL) 4 mg tablet 2019-07-09 00:00:00 2019-07 00:00:00 No Uncontrolled type 2 diabetes mellitus without complication, without long-term current use of insulin 8mg QD Take 2 tablets by mouth daily (with breakfast) Please see pcp for future refills. [facility] atorvastatin (LIPITOR) 40 mg tablet 2019-07-09 00:00:0 0 2019-08-05 00:00:00 No Dyslipidemia 40mg Take 1 tablet b y mouth at bedtime nightly Please see pcp for future refills. [facility] hydroCHLOROthiazide (HYDRODIURIL) 25 mg tablet 2 00:00:00 2019-10-11 00:00:00 No Essential hypertension with goal blood pressure less than 140/90 25mg QD Take 1 tablet by mouth daily. [facility] amLODIPine (NORVASC) 10 mg tablet 2019-06-19 00:00:00 2018 00:00:00 No Medication refill 10mg QD Take 1 tablet by mouth daily Please see PCP for future refills. [facility] Valsartan 80 mg tablet 2019-05-14 00:00:00 2019-08-12 00:00: 00 No Essential hypertension with goal blood pressure less than 140/90 80mg QD Take 1 tablet by mouth daily PLEASE see PCP for future refills. [facility] metFORMIN (GLUCOPHAGE) 1,000 mg tablet 2019-04-29 6 00:00:00 2019-08-07 00:00:00 No Uncontrolled type 2 diabetes mellitus without complication, without long- term current use of insulin 1000mg Take 1 table t by mouth 2 times daily (with meals) PLEASE see PCP for future refills. [facility] glimepiride (AMARYL) 4 mg tablet 2019-04-08 00:00:00 2019-06 00:00:00 No Uncontrolled type 2 diabetes mellitus without complication, without long-term current use of insulin 8mg QD Take 2 tablets by mouth daily ( with breakfast). [facility] linagliptin (TRADJENTA) 5 mg tablet 2019-03-16 00:00:0 0 2019-09-09 00:00:00 No Uncontrolled type 2 diabetes mellitus without complication, without long-term current use of insulin 5mg QD Take 1 tablet by mouth daily. [facility] amLODIPine (NORVASC) 10 mg tablet 2019-03-16 00:00:00 2018 00:00:00 No Medication refill 10mg QD Take 1 tablet by mouth daily Please see PCP for future refills. [facility] hydroCHLOROthiazide (HYDRODIURIL) 25 mg tablet 2 00:00:00 2019-07-01 00:00:00 No Essential hypertension with goal blood pressure less than 140/90 25mg QD Take 1 tablet by mouth daily. [facility] naproxen (NAPROSYN) 500 mg tablet 2018-10-05 00:00:00 2019 00:00:00 No Pain of right heel 500mg Take 1 tablet by mouth 2 larry es daily (with meals). [facility] lancets 28 gauge 2018-07-04 00:00:00 2020-01-18 00:00:00 No Uncontrolled type 2 diabetes mellitus without complication, without long-term current use of insulin Use 2 times weekly as directed. [facility] blood glucose (PRECISION XTRA TEST STRIPS) test strips 2018-07-04 00:00:00 2019-07-11 00:00:00 No Uncontrolled type 2 diabetes mellitus without complication, without long-term current use of insulin Use 2 times weekly. [facility] atorvastatin (LIPITOR) 40 mg tablet 2018-07-04 00:00:0 0 2019-07-08 00:00:00 No Dyslipidemia 40mg Take 1 tablet by mouth at bedtime n ightly. [facility] clotrimazole (LOTRIMIN) 1 % topical cream 2016-10 00:00:00 2019-11-04 00:00:00 No Onychomycosis Q.5D Apply to affected area 2 times daily. [facility] blood glucose meter (PRECISION XTRA GLUCOMETER) 2017-09-01 0 0:00:00 Yes Poorly controlled diabetes mellitus Use as directed.. [facility] Immunizations Ordered Immunization Name Filled Immunization Name Date Status Comments Source Influenza, Injectable, Quadrivalent 2019-12-16 00:00:00 Co mpleted [facility] PCV 13 (Pnuemococcal Conjugated 13 Valent) 2019-12-16 00:0 0:00 Completed [facility] Herpes Zoster Vaccine In Clinic 2018-05-30 00:00:00 Comple michelle [facility] Influenza Vaccine, Seasonal, Injectable 2017-09-01 00:00:0 0 Completed [facility] PPV 23 Pneumococcal Polysaccaride 2009-09-10 00:00:00 Comp leted [facility] Td Tetanus, diphtheria Toxoids Vaccine 2007-09-10 00:00:00 Completed [facility] Vital Signs Vital Name Observation Time Observation Value Comments Source Systolic blood pressure 2020-04-20 14:26:00 164 mm[Hg] [facility] Diastolic blood pressure 2020-04-20 14:26:00 69 mm[Hg] [facility] Heart rate 2020-04-20 14:26:00 80 /min [facility] Body temperature 2020-04-20 14:26:00 36.61 Patrizia [facility] Body weight 2020-04-20 14:26:00 84.823 kg [facility] BMI 2020-04-20 14:26:00 28.43 kg/m2 [facility] Respiratory rate 2019-12-16 09:08:00 18 /min [facility] Body height 2019-12-16 09:08:00 172.7 cm [facility] Oxygen saturation in Arterial blood by Pulse oximetry 2018-1016 10:13:00 100 /min [facility] Procedures Procedure Date / Time Performed Performing Clinician Sour e CBC/DIFF 2020-04-20 13:59:00 Wm Ravi [facility] COMPREHENSIVE METABOLIC PANEL 2020-04-20 13:59:00 [facility] CBC 2020-04-20 13:59:00 [facility] 2020-04-20 13:59:00 [facility] 2020-04-20 13:59:00 [facility]ME[facility]/ NOT FOR PATH REVIEW 2020-04-20 13:59:00 [facility] BASIC METABOLIC PANEL 2020-01-06 10:36:00 Mayra Treviño [facility] HEMOGLOBIN A1C 2020-01-06 10:36:00 Mayra Treviño [facility] GLUCOSE POC 2019-12-16 10:31:00 Mayra Treviño DIABETIC FOOT EXAM 2019-12-16 10:29:14 Mayra Treviño alth DESTRUCTION OF EXTENSIVE OR PROGRESSIVE RETINOPATHY PHOTOCOAG (LASER OR XENON ARC) 2019-11-08 15:12:56 Dipesh Mclean [facility] FERRITIN 2019-11-04 10:15:00 Mayra Treviño IRON PROFILE 2019-11-04 10:15:00 Mayra Treviño VITAMIN B12 2019-11-04 10:15:00 Mayra Treviño h FOLIC ACID 2019-11-04 10:15:00 Mayra Treviño h FECAL OCCULT BLOOD 2019-10-24 09:52:00 Lourdes Medel willa HEMOGLOBIN A1C 2019-10-18 08:54:00 [facility] CBC/DIFF 2019-10-18 08:54:00 [facility] COMPREHENSIVE METABOLIC PANEL 2019-10-18 08:54:00 Lourdes Medel [facility] MICROALBUMIN / CREATININE URINE RATIO 2019-10-18 08:54:00 Lourdes Medel [facility] LIPID PROFILE 2019-10-18 08:54:00 Lourdes Medel [facility] CBC 2019-10-18 08:54:00 [facility] Planned Activity Planned Date Details Comments Source Future Scheduled Test 2021-01-16 00:00:00 DM Retinal Exam (Y early) [code = DM Retinal Exam (Yearly)] [facility] Scheduled Test 2021-01-05 00:00:00 Hemoglobin A1c belinda surement (procedure) [code = 33080936] [facility] Scheduled Test 2020-12-16 00:00:00 DM Foot Exam (Year ly) [code = DM Foot Exam (Yearly)] [facility] Scheduled Test 2020-10-24 00:00:00 Screening for sandi gnant neoplasm of colon (procedure) [code = 043124041] [facility] Encounters Start Date/Time End Date/Time Encounter Type Admission Type Attendi [facility] Care Department Encounter ID Source 2019-10-14 00:00:00 2019-10-14 00:00:00 Outpatient [facility] [id number] [facility] 2019-04-22 11:15:14 2019-04-22 11:15:14 Outpatient [facility] [id number] [facility] 2019-02-08 10:35:35 2019-02-08 10:35:35 Outpatient [facility] [id number] [facility] 2019-01-07 00:00:00 2019-01-07 00:00:00 Outpatient [facility] [id number] [facility] 2019-01-01 00:00:00 2019-01-01 00:00:00 Outpatient [facility] [id number] [facility] 2018-11-20 09:20:47 2018-11-20 09:20:47 Outpatient [facility] [id number] [facility] 2018-11-20 08:43:07 2018-11-20 08:43:07 Outpatient [facility] [id number] [facility] 2018-10-29 10:11:33 2018-10-29 10:11:33 Outpatient [facility] [id number] [facility] 2018-10-09 00:00:00 2018-10-09 00:00:00 Outpatient [facility] [id number] [facility] 2018-10-05 10:45:33 2018-10-05 10:45:33 Outpatient [facility] [id number] [facility] 2018-09-25 10:01:48 2018-09-25 10:01:48 Outpatient [facility] [id number] [facility] 2018-08-27 14:03:21 2018-08-27 14:03:21 Outpatient [facility] [id number] [facility] 2018-08-27 13:47:38 2018-08-27 13:47:38 Outpatient [facility] [id number] [facility] 2018-08-10 00:00:00 2018-08-10 00:00:00 Outpatient [facility] [id number] [facility] 2018-07-06 00:00:00 2018-07-06 00:00:00 Outpatient [facility] [id number] [facility] 2018-07-04 14:12:02 2018-07-04 14:12:02 Outpatient [facility] [id number] [facility] 2018-07-04 12:59:00 2018-07-04 12:59:00 Outpatient [facility] [id number] [facility] 2018-07-04 00:00:00 2018-07-04 00:00:00 Outpatient [facility] [id number] [facility] 2018-07-03 14:28:10 2018-07-03 14:28:10 Outpatient [facility] [id number] [facility] 2018-06-20 00:00:00 2018-06-20 00:00:00 Outpatient [facility] [id number] [facility] 2018-06-19 00:00:00 2018-06-19 00:00:00 Outpatient [facility] [id number] [facility] 2018-05-30 10:08:03 2018-05-30 10:08:03 Outpatient [facility] [id number] [facility] 2018-05-30 08:11:55 2018-05-30 08:11:55 Outpatient [facility] [id number] [facility] 2018-05-30 00:00:00 2018-05-30 00:00:00 Outpatient [facility] [id number] [facility] 2018-05-11 14:26:12 2018-05-11 14:26:12 [facility]patient [facility] [id number] [facility] 2018-05-11 11:55:32 2018-05-11 11:55:32 Outpatient [facility] [id number] [facility] 2018-01-16 00:00:00 2018-01-16 00:00:00 Outpatient [facility] [id number] [facility] 2018-01-09 00:00:00 2018-01-09 00:00:00 Outpatient [facility] [id number] [facility] 2017-12-12 00:00:00 2017-12-12 00:00:00 Outpatient [facility] [id number] [facility] 2017-11-21 00:00:00 2017-11-21 00:00:00 Outpatient [facility] [id number] [facility] 2017-11-09 13:47:43 2017-11-09 13:47:43 Outpatient [facility] [id number] [facility] 2017-10-20 00:00:00 2017-10-20 00:00:00 Outpatient [facility] [id number] [facility] 2017-10-16 14:25:28 2017-10-16 14:25:28 Outpatient [facility] [id number] [facility] 2017-10-12 13:43:45 2017-10-12 13:43:45 Outpatient [facility] [id number] [facility] 2017-09-28 12:45:47 2017-09-28 12:45:47 Outpatient [facility] [id number] [facility] 2017-09-11 10:57:13 2017-09-11 10:57:13 Outpatient [facility] [id number] [facility] 2017-09-11 10:17:41 2017-09-11 10:17:41 Outpatient [facility] [id number] [facility] 2017-09-01 09:04:58 2017-09-01 09:04:58 Outpatient [facility] [id number] [facility] 2017-09-01 07:59:43 2017-09-01 07:59:43 Outpatient [facility] [id number] [facility] 2017-08-02 13:43:12 2017-08-02 13:43:12 Outpatient [facility] [id number] [facility] 2017-08-02 13:25:04 2017-08-02 13:25:04 Outpatient [facility] [id number] [facility] 2017-05-17 00:00:00 2017-05-17 00:00:00 Outpatient [facility] [id number] [facility] 2017-04-18 13:34:10 2017-04-18 13:34:10 Outpatient [facility] [id number] [facility] 2017-04-14 00:00:00 2017-04-14 00:00:00 Outpatient [facility] [id number] [facility] 2017-04-07 12:07:01 2017-04-07 12:07:01 Outpatient [facility] [id number] [facility] 2017-03-16 00:00:00 2017-03-16 00:00:00 Outpatient [facility] [id number] [facility] 2017-03-14 08:53:11 2017-03-14 08:53:11 Outpatient [facility] [id number] [facility] Results Test Description Test Time Test Comments Results Result Comments Source Electroph, Bld 2020-04-22 17:53:00 COMMENTIncre ased albumin and total protein consistent with dehydration. Katie Grider M.D., PhD., Pathologist/[facility], [place] ([id number]) [id number] [facility]ATORYProteinComment: 7.2[facility] Ferritin 2020-04-20 21:18:00 Test Item Ferritin (test code = 50306372) 100.9 ng/mL 23.9-336.2 Lab Interpretation (test code = 10472-4) Normal [facility] [id number] 16:12:00* Test Item Value Reference Range Interpretation Comments Save Smear (test code = 62315803) Smear stained and available for [facility]e w[facility]w [facility] [id number] 14:50:00* Test Item Value Reference Range Interpretation Comments Sodium (test code = 2951-2) 135 mmol/L 136-145 L Potassium (test code = 2823-3) 4.7 mmol/L 3.5-5.1 Chloride (test code = 2075-0) 102 mmol/L 98-107 CO2 (test code = 85285589) 25 mmol/L 21-31 Glucose (test code = 87772083) 353 mg/dL 70-110 H Calcium (test code = 16705766) 9.9 mg/dL 8.6-10.3 Urea Nitrogen (test code = 38370198) 29.0 mg/dL 7-25 H Creatinine (test code = 59895543) 1.0 mg/dL 0.7-1.3 Alkaline Phosphatase (test code = 38925896) 73 U/L 34-104 ALT (test code = 32997335) 22 U/L 7-52 AST (test code = 46995799) 18 U/L 13-39 Total Protein (test code = 2885-2) 7.2 g/dL 6-8.3 GFR, Estimated (test code = 56076922) 75 >=90 mL/min/1.73 m2 L Albumin (test code = 80044-7) 4.5 g/dL 4.2-5.5 Anion Gap (test code = 34608477) 8 mmol/L 5-16 Lab Interpretation (test code = 49049-5) [id number] 14:29:00* Test Item Value Reference Range Interpretation Comments WBC (test code = 6690-2) 7.3 K/uL 4.5-12 RBC (test code = 789-8) 4.06 4.60- 6.20 M/uL L Hemoglobin (test code = 718-7) 12.7 g/dL 14-18 L Hematocrit (test code = 4544-3) 38.0 % 40-54 L MCV (test code = 787-2) 93.6 fL 82-92 H MCH (test code = 785-6) 31.3 pg 27-31 H MCHC (test code = 786-4) 33.4 g/dL 32-36 RDW (test code = 69106-5) 42.8 fL 35.1-43.9 Platelet (test code = 777-3) 251 K/uL 150-400 Mean Platelet Volume (test code = 79090-2) 9.9 fL 9.4-12.4 Neutrophil (test code = 770-8) 73.8 % 34-67.9 H Lymphs (test code = 736-9) 14.0 % 21.8-50 L Monocytes (test code = 5905-5) 9.1 % 5.3-12 Eos (test code = 713-8) 2.6 % 0.8-5 Basos (test code = 706-2) 0.5 % 0.2-1.2 Immature Granulocytes (test code = 40186693) 0.3 % 0-0.5 Neutrophils (Absolute) (test code = 88091619) 5.37 K/uL 1.78-5.3 6 H Lymphs (Absolute) (test code = 72029214) 1.02 K/uL 1.32-3.57 L Monocytes(Absolute) (test code = 88752428) 0.66 K/uL 0.3-0.82 Eos (Absolute) (test code = 43349692) 0.19 K/uL 0.04-0.54 Baso (Absolute) (test code = 40409484) 0.04 K/uL 0.01-0.08 Immature Grans (Abs) (test code = 15218096) 0.02 K/uL 0-0.03 Lab Interpretation (test code = 11188-9) [facility]normal [facility] [id number] 17:59:00* Test Item Value Reference Range Interpretation Comments Hemoglobin A1c (test code = 4548-4) 8.6 % 4.3-6.1 H Estimated Average Glucose (test code = 18616489) 200 mg/dL 70-11 0 H Lab Interpretation (test code = 90016-5) Abnormal [facility] Metabolic [id number] 15:51:00* Test Item Value Reference Range Interpretation Comments Sodium (test code = 2951-2) 139 mmol/L 136-145 Potassium (test code = 2823-3) 4.8 mmol/L 3.5-5.1 Chloride (test code = 2075-0) 102 mmol/L 98-107 CO2 (test code = 70831046) 29 mmol/L 21-31 Urea Nitrogen (test code = 50994282) 25.0 mg/dL 7-25 Creatinine (test code = 46225970) 1.1 mg/dL 0.7-1.3 Glucose (test code = 32665550) 311 mg/dL 70-110 H Calcium (test code = 80776399) 9.2 mg/dL 8.6-10.3 GFR, Estimated (test code = 62525435) 67 >=90 mL/min/1.73 m2 L Anion Gap (test code = 28604232) 8 mmol/L 5-16 Lab Interpretation (test code = 27716-4) Abnormal [facility] GLUCOSE POC docked [id number] 10:35:00* Test Item Value Reference Range Interpretation Comments Glucose POC (test code = 07942674) 261 mg/dL 74-106 H Lab Interpretation (test code = 84540-9) Abnormal [facility] FOOT [id number] 10:29:14Mayra Treviño MD 12/16/2019 11:18 AMDiabetic Foot Exam was performed at 12/16/2019 10:29 AM. Right foot sensation is normal, right foot pulses are normal, right foot appearance is abnormal. Left foot sensation is normal, left foot pulses are normal, left foot appearance is abnormal. Nail fungus noted [facility] 2019-[facility] 16:10:00* Test Item Value Reference Range Interpretation Comments Folic Acid (test code = 35898311) 11.6 ng/mL 5.9-24.8 Lab Interpretation (test code = 54173-7) Normal [facility] [id number] 16:09:00* Test Item Value Reference Range Interpretation Comments Vitamin B12 (test code = 25789815) 550 pg/mL See comment Normal: 180-914 pg/mLIntermittent: 145-180 pg/mLDeficient: <=145.0 pg/mL [facility] [id number] 15:39:00* Test Item Value Reference Range Interpretation Comments Iron (test code = 60836113) 104 ug/dL 50-212 TIBC (test code = 23834551) 317 ug/dL 250-450 % Iron Sat (test code = 29473725) 33 % Transferrin (test code = 77147020) 226.52 mg/dL 203-362 [facility] Occult [id number] 09:55:00* Test Item Value Reference Range Interpretation Comments Occult Blood (test code = 54589-8) Negative Negative Lab Interpretation (test code = 01945-8) Normal [facility] Hospital[facility]id [id number] 16:02:00* Test Item Value Reference Range Interpretation Comments Cholesterol (test code = 2093-3) 112.0 mg/dL <=200.0 Triglyceride (test code = 91915029) 112 mg/dL <150 HDL (test code = 2085-9) 41.0 mg/dL See Reference Range Narrative . LDL (test code = 54143-2) 49 mg/dL <100 Op timal: < 100.0 mg/dLNear Optimal: 120-129 mg/dLBorderline: 130-159 mg/dLHigh: 160-189 mg/dLVery High: >=190 mg/dL Patient Fasting? (test code = 87720816) Yes [facility]Crea Ratio,[id number] 14:37:00* Test Item Value Reference Range Interpretation Comments Microalbumin, Random (test code = 89230561) 26.5 mg/dL <30.0 Creatinine, Urine (test code = 81959841) 115 mg/dL 20-370 Urine Microalbumin (test code = 79892226) 230.4 mg/g 0-30 H Lab Interpretation (test code = 35509-8) Abnormal [facility]
--- OUTSIDE RECORDS SUMMARY | 2020-06-11 15:15 | XMS REPORT | Clinical Summary ---
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 (Primary Dx) 12/30/2019 Office Visit Ophthalmology Kylee Harris 12/24/2019 Nutrition Mayra Parry MD Uncontrolled diabetes mellitus type 2 wi thout complications (Primary Dx); Anemia, unspecified type; Nail fungus 12/16/2019 Office Visit [facility] Kylee Harris 12/10/2019 Antwan Jones RN 11/28/2019 [...] stool; Anemia, unspecified type 11/04/2019 Office Visit [facility] Antwan Lynch RN 10/31/2019 Patient Patient Education [...] PM CDT Temperature 18 12/16/2019 9:08 AM SECURITY OPERATIONS SPECIALIST Respiratory Rate 100% 10/14/2019 10:13 AM SECURITY OPERATIONS SPECIALIST Oxygen Saturation - - Inhaled Oxygen Concentration 84.8 kg (187 lb) 04/20/2020 2:26 PM CDT Weight 172.7 cm (5' 8") 12/16/2019 9:08 AM SECURITY OPERATIONS SPECIALIST Height 28.43 12/16/2019 9:08 AM SECURITY OPERATIONS SPECIALIST Body Mass Index Plan of Treatment Care Team Description Date Type Specialty Mayra Treviño MD [address] [place] [address] [phone] Tested positive for COVID 19 on 06/05/20 20; ER; Locket Maker needed 06/15/2020 Telephonic Family Practice Encounter 07/07/2020 Lab Appointment Lab Wm Ravi, Fellow() [address] [place] [address] Breonna/ labs done 07/07, per [...] Implanted Type Area Manufactur er 09/21/2020 / [id number] / Implant [employer] 1 Piece Implant Left: Eye(s) [id number] 22.5d - [id number] eye Implanted: Qty: 1 on 01/25/2017 by Caleb Norris MD at [facility] Procedures Comments Procedure Name Priority Date/Time Associated [...] complications GLUCOSE POC Routine 12/16/2019 10:31 AM SECURITY OPERATIONS SPECIALIST DIABETIC FOOT EXAM Routine 12/16/2019 Uncontrolle d diabetes 10:29 AM SECURITY OPERATIONS SPECIALIST mellitus type 2 without complications DESTRUCTION OF EXTENSIVE Routine 11/08/2019 Proli ferative diabetic OR PROGRESSIVE 3:12 PM SECURITY OPERATIONS SPECIALIST retinopathy of both eyes RETINOPATHY PHOTOCOAG with macular edema (LASER OR XENON ARC) associated with type 2 diabetes mellitus FOLIC ACID Routine 11/04/2019 Anemia, unspeci fied type 10:15 AM SECURITY OPERATIONS SPECIALIST VITAMIN B12 Routine 11/04/2019 Anemia, unspeci fied type 10:15 AM SECURITY OPERATIONS SPECIALIST IRON PROFILE Routine 11/04/2019 Anemia, unspeci fied type 10:15 AM SECURITY OPERATIONS SPECIALIST FERRITIN Routine 11/04/2019 Anemia, unspeci fied type 10:15 AM SECURITY OPERATIONS SPECIALIST FECAL OCCULT BLOOD Routine 10/24/2019 Uncontrolle d type 2 9:52 AM SECURITY OPERATIONS SPECIALIST diabetes mellitus without complication, without long-term current use of insulin CBC Routine 10/18/2019 Uncontrolled ty pe 2 8:54 AM SECURITY OPERATIONS SPECIALIST diabetes mellitus without complication, without long-term current use of insulin LIPID PROFILE Routine 10/18/2019 Dyslipidemia 8:54 AM SECURITY OPERATIONS SPECIALIST MICROALBUMIN / CREATININE Routine 10/18/2019 Unco ntrolled type 2 URINE RATIO 8:54 AM SECURITY OPERATIONS SPECIALIST diabetes mellitus w ithout complication, without long-term current use of insulin COMPREHENSIVE METABOLIC Routine 10/18/2019 Uncont rolled type 2 PANEL 8:54 AM SECURITY OPERATIONS SPECIALIST diabetes mellitus w ithout complication, without long-term current use of insulin CBC/DIFF Routine 10/18/2019 Uncontrolled ty pe 2 8:54 AM SECURITY OPERATIONS SPECIALIST diabetes mellitus without complication, without long-term current use of insulin HEMOGLOBIN A1C Routine 10/18/2019 Uncontrolled ty pe 2 8:54 AM SECURITY OPERATIONS SPECIALIST diabetes mellitus without complication, without long-term current use of insulin after 06/11/2019 Results * CBC/Diff (04/20/2020 1:59 PM CDT) Only the most recent of 2 results within the time period is included. WBC 7.3 4.5 - 12.0 K/uL [facility] RBC 4.06 (L) 4.60 - 6.20 M/uL [facility] Hemoglobin 12.7 (L) 14.0 - 18.0 g/dL [facility] Hematocrit 38.0 (L) 40.0 - 54.0 % [facility] MCV 93.6 (H) 82.0 - 92.0 fL [facility] MCH 31.3 (H) 27.0 - 31.0 pg [facility] MCHC 33.4 32.0 - 36.0 g/dL [facility] RDW 42.8 35.1 - 43.9 fL [facility] Platelet 251 150 - 400 K/uL [facility] Mean Platelet 9.9 9.4 - 12.4 fL [facility] Volume LAB Neutrophil 73.8 (H) 34.0 - 67.9 % [facility] Lymphs 14.0 (L) 21.8 - 50.0 % [facility] Monocytes 9.1 5.3 - 12.0 % [facility] Eos 2.6 0.8 - 5.0 % [facility] Basos 0.5 0.2 - 1.2 % [facility] Immature 0.3 0.0 - 0.5 % [facility] Granulocytes LAB Neutrophils 5.37 (H) 1.78 - 5.36 K/uL [facility] (Absolute) LAB Lymphs 1.02 (L) 1.32 - 3.57 K/uL [facility] (Absolute) LAB Monocytes(Absol 0.66 0.30 - 0.82 K/uL [facility] [place]) LAB Eos (Absolute) 0.19 0.04 - 0.54 K/uL [facility] Baso (Absolute) 0.04 0.01 - 0.08 K/uL [facility] Immature Grans 0.02 0.00 - 0.03 K/uL [facility] (Abs) LAB Specimen Blood Performing Organization Address City/[facility] Services[facility] Ph one Number [facility] [place] [address] [phone] [facility] [address] [address] * Save Smear (04/20/2020 1:59 PM CDT) [facility] Save Smear Smear stained and available [facility] for review LAB Specimen Blood Performing Organization Address City/State/Zipcode Ph one Number [facility] [place] [address] [facility] [address] [address] * Comprehensive Metabolic Panel (04/20/2020 1:59 PM CDT) Only the most recent of 2 results within the time period is included. [facility] Sodium 135 (L) 136 - 145 mmol/L [facility] Potassium 4.7 3.5 - 5.1 mmol/L [facility] Chloride 102 98 - 107 mmol/L [facility] CO2 25 21 - 31 mmol/L [facility] Glucose 353 (H) 70 - 110 mg/dL [facility] Calcium 9.9 8.6 - 10.3 mg/dL [facility] Urea Nitrogen 29.0 (H) 7.0 - 25.0 mg/dL [facility] Creatinine 1.0 0.7 - 1.3 mg/dL [facility] Alkaline 73 34 - 104 U/L [facility] Phosphatase LAB ALT 22 7 - 52 U/L [facility] AST 18 13 - 39 U/L [facility] Bilirubin, 0.4 0.2 - 1.2 mg/dL [facility] Total LAB Total Protein 7.2 6.0 - 8.3 g/dL [facility] GFR, Estimated 75 (L) >=90 mL/min/1.73 m2 [facility] IC LAB Albumin 4.5 4.2 - 5.5 g/dL [facility] Anion Gap 8 5 - 16 mmol/L [facility] Specimen Blood Performing Organization Address [facility] one Number [facility] [place] [address] [phone] [facility] [address] [place] [address] * Ferritin (04/20/2020 1:59 PM CDT) Only the most recent of 2 results within the time period is included. [facility] Ferritin 100.9 23.9 - 336.2 ng/mL [facility] Specimen Blood Performing Organization Address [facility] Ph one Number [facility] [address] [place] [address] [phone] * Electroph, Bld (04/20/2020 1:59 PM CDT) [facility] COMMENT Increased albumin and total [facility] protein consistent with LABORATORY dehydration. Katie Grider M.D., PhD., Pathologist/[facility] ([id number]) [id number] Protein Comment: 7.2 [facility] Specimen Blood Performing Organization Address [facility] Ph one Number [facility] [address] [place] [address] * Hemoglobin A1C (01/06/2020 10:36 AM CDT) Only the most recent of 2 results within the time period is included. Pathologist [facility] Hemoglobin A1c 8.6 (H) 4.3 - 6.1 % [facility] Estimated 200 (H) 70 - 110 mg/dL [facility] Average Glucose LABORATORY Specimen Blood Performing Organization Address [facility] one Number [facility] [address] [place] [address] * Basic Metabolic Panel (01/06/2020 10:36 AM CDT) [facility] Sodium 139 136 - 145 mmol/L [facility] Specimen Blood Performing Organization Address [facility] one Number [facility] [address] [place] [address] * POCT GLUCOSE POC docked device (12/16/2019 10:31 AM SECURITY OPERATIONS SPECIALIST) [facility] Glucose POC 261 (H) 74 - 106 mg/dL [facility] Specimen Blood Performing Organization Address [facility] one Number [facility] [address] [place] [address] [facility] * DIABETIC FOOT EXAM (12/16/2019 10:29 AM SECURITY OPERATIONS SPECIALIST) Narrative Performed At Mayra Treviño MD 12/16/2019 11:1 8 AM Diabetic Foot Exam was performed at 11/30 10:29 AM. Right foot sensation is normal, right foot pulses are normal, right foot appearance is abnormal. Left foot sensation is n ormal, left foot pulses are normal, left foot appearance is abnormal. Nail fungus noted * Folic Acid (11/04/2019 10:15 AM SECURITY OPERATIONS SPECIALIST) Folic Acid 11.6 5.9 - 24.8 ng/mL [facility] Specimen Blood Performing Organization Address [facility] one Number [facility] [address] [place] [address] * Vitamin B12 (11/04/2019 10:15 AM SECURITY OPERATIONS SPECIALIST) Pathologist [facility] Vitamin B12 550 See comment pg/mL [facility] Comment: LABORATORY Normal: 180-914 pg/mL Intermittent: 145-180 pg/mL Deficient: <=145.0 pg/mL Specimen Blood Performing Organization Address [facility] one Number [facility] [address] [place] [address] [phone] * Iron Profile (11/04/2019 10:15 AM SECURITY OPERATIONS SPECIALIST) Pathologist [facility] Iron 104 50 - 212 ug/dL [facility] TIBC 317 250 - 450 ug/dL [facility] % Iron Sat 33 % [facility] Transferrin 226.52 203.00 - 362.00 [facility] mg/dL [facility] Specimen Blood Performing Organization Address [facility] one Number [facility] [address] [place] [address] [phone] * Fecal Occult Blood (10/24/2019 9:52 AM SECURITY OPERATIONS SPECIALIST) [facility] Occult Blood Negative Negative [facility] Specimen Stool - Feces Performing Organization Address [facility] one Number [facility] [address] [place] [phone] [facility] * Microalb/Crea Ratio,Ur (10/18/2019 8:54 AM SECURITY OPERATIONS SPECIALIST) Pathologist [facility] Microalbumin, 26.5 <30.0 mg/dL [facility] Random [facility] Creatinine, 115 20 - 370 mg/dL [facility] Urine [facility]OR[facility] Urine 230.4 (H) 0.0 - 30.0 mg/g [facility] Microalbumin [facility] Specimen Urine - Voided, urine Performing Organization Address [facility] one Number [facility] [address] [place] [address] * Lipid Profile (10/18/2019 8:54 AM SECURITY OPERATIONS SPECIALIST) Cholesterol 112.0 <=200.0 mg/dL [facility] [...] Number [facility] [address] [place] [address] after 06/11/2019 Additional Health Concerns Last Indicated Resolved Time Infection Onset Date 06/08/2020 Covid-19 06/05/2020 Insurance Type Payer Benefit Subscriber ID Effective Phone Address Plan / Dates Group [employer] xxxxxx 2019- [phone] [id number] [facility] [address] [place] [address] [phone]
--- OUTSIDE RECORDS SUMMARY | 2020-06-11 15:15 | XMS REPORT | Continuity of Care Document ---
Author Author [facility] t Organization [facility] Address [address] [place] [address] Phone Unavailable Care Team Providers Care Sharepoint Specialist Name Role Phone Hudson ALVARADO, P Mayra [...] Policy Number Effective Date Expiration Date S [facility] PLANFINANCIAL ASSISTANCE PROGRAMxxx xx2019-10/29/[id number] [place] [address] xxxxxx 2019 00:00:00 2019-10 23:59:59 [facility] Problems Condition Name Condition Details Condition Category Status Onset Date Resolution Date Last Treatment Date Treating Clinician Comments Source Hypertensive retinopathy of both eyes Hypertensive retinopat hy of both eyes Disease Active 2019-11-08 00:00:00 [facility] 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 type 2 diabetes mellitus Disease Active 2019-10-14 00:00:00 Ata de la rosa Combined form of age-related cataract, right eye Combi marcelino form of age-related cataract, right eye Disease Active 2018-10-29 00:00:00 [facility] Personal history of noncompliance with m edical [...] PLEASE CALL GI Disease Active 2018-05-30 00:00:00 [facility] Hyperkalemia Hyperkalemia Disease Active 2018-05-11 00:00:00 [facility] Poorly controlled diabetes mellitus Poorly controlled diabetes m ellitus Disease Active 2017-03-14 00:00:00 [facility] Nuclear cataract of left eye Nuclear cataract of left eye Disease Active 2017-01-26 00:00:00 [facility] Erectile dysfunction Erectile dysfunction Disease Active 00:00:00 [facility] Type II diabetes mellitus Type II diabetes mellitus Disease Active [facility] Essential hypertension, benign Essential hypertension, benign Disease Active [facility] Other and unspecified hyperlipidemia Other and unspecified h yperlipidemia Disease Active [facility] lt Proteinuria Proteinuria Disease Active [facility] History of Past Illness Condition Name Condition Details Condition Category Status Onset Date Resolution Date Last Treatment Date Treating Clinician Comments Source NPDR (nonproliferative diabetic retinopathy) NPDR (non proliferative diabetic retinopathy) Disease Resolved 2016-11-24 00:00:00 2019-10-14 00:00:00 2 10:20:18 [facility] Severe nonproliferative diabetic retinop athy of both eyes, due to underlying condition, with macular edema Severe nonproliferative diabetic retinop athy of both eyes, due to underlying condition, with macular edema Disease R esolved 2016-06-28 00:00:00 2019-10-14 00:00:00 2019-10-14 10:20:16 [facility] Allergies, Adverse Reactions, Alerts Allergy Name Allergy Type Status Severity Reaction(s) Onset Date Inacti ve Date Treating Clinician Comments Source Enalapril Propensity to adverse reactions to drug Active Other 2009-12-01 00:00:00 Hyperkalemia [facility] Family History Family Member Diagnosis Comments Start Date Stop Date Source Natural mother Diabetes Ata Martinez [facility] Social History Social Habit Start Date Stop Date Quantity Comments Source Sex Assigned At [facility] Exposure to SARS-CoV-2 (event) Yes [facility] Alcohol intake 2020-04-20 00:00:00 2020-04-20 00:00:00 Current drinker of alcohol (finding) [facility] SDOH Food Worry 2019-10-11 00:00:00 2019-10-11 00:00:00 3 [facility] History SDOH Food Scarcity 2019-10-11 00:00:00 2019-10-11 00:00:00 3 [facility] Alcohol Comment 2009-09-10 00:00:00 2009-09-10 00:00:00 drinks every week [facility] Smoking Status Start Date Stop Date Source Never smoker [facility] Medications Ordered Medication Name Filled Medication Name Start Date Stop Da te Current Medication? Ordering Clinician Indication Dosage Frequency Signature (SIG) Comments Components Source glimepiride (AMARYL) 4 mg tablet 2020-01-18 00:00:00 Yes Uncontrolled type 2 diabetes mellitus without complication, without long-term current use of insulin 8mg QD Take 2 tablets by mouth daily (with breakfast). [facility] linaGLIPtin (TRADJENTA) 5 mg tablet 2020-01-18 00:00:00 Yes Uncontrolled type 2 diabetes mellitus without complication, without long-term current use of insulin 5mg QD Take 1 tablet by mouth daily. [facility] hydroCHLOROthiazide (HYDRODIURIL) 25 mg tablet 2020-01-18 00 :00:00 Yes Essential hypertension with goal blood pressure less than 140/90 25mg QD Take 1 tablet by mouth daily. [facility] amLODIPine (NORVASC) 10 mg tablet 2020-01-18 00:00:00 Yes Medication refill 10mg QD Take 1 tablet by mouth daily. [facility] valsartan (DIOVAN) 80 mg tablet 2020-01-18 00:00:00 Yes Essential hypertension with goal blood pressure less than 140/90 80mg QD Take 1 tablet by mouth daily. [facility] atorvastatin (LIPITOR) 40 mg tablet 2020-01-18 00:00:00 Yes Dyslipidemia 40mg Take 1 tablet by mouth at bedtime nightly. [facility] metFORMIN (GLUCOPHAGE) 1,000 mg tablet 2020-01-18 00:00:00 Yes Uncontrolled type 2 diabetes mellitus without complication, without long-term current use of insulin 1000mg Take 1 tablet by mouth 2 times daily (with meals). [facility] blood glucose (PRECISION XTRA TEST STRIPS) test strips 2020-01-18 00:00:00 Yes Uncontrolled type 2 diabetes mellitus without complication, without long- term current use of insulin Use 2 times weekly. [facility] lancets 28 gauge 2020-01-18 00:00:00 Yes Uncontrolled type 2 diabetes mellitus without complication, without long-term current use of insulin Use 2 times weekly as directed. [facility] clotrimazole (LOTRIMIN) 1 % topical cream 2019-12-16 00:00:0 0 Yes Nail fungus Q.5D Apply to affected ar ea 2 times daily To nails and affected area on feet for fungus. [facility] glimepiride (AMARYL) 4 mg tablet 2019-10-11 00:00:00 2019-12 00:00:00 No Uncontrolled type 2 diabetes mellitus without complication, without long-term current use of insulin 8mg QD Take 2 tablets by mouth daily (with breakfast) Please see pcp for future refills. [facility] linaGLIPtin (TRADJENTA) 5 mg tablet 2019-10-11 00:00:0 0 2020-01-18 00:00:00 No Uncontrolled type 2 diabetes mellitus without complication, without long-term current use of insulin 5mg QD Take 1 tablet by mouth daily. [facility] hydroCHLOROthiazide (HYDRODIURIL) 25 mg tablet 2 00:00:00 2020-01-18 00:00:00 No Essential hypertension with goal blood pressure less than 140/90 25mg QD Take 1 tablet by mouth daily. [facility] amLODIPine (NORVASC) 10 mg tablet 2019-10-11 00:00:00 2019 00:00:00 No Medication refill 10mg QD Take 1 tablet by mouth daily Please see PCP for future refills. [facility] valsartan (DIOVAN) 80 mg tablet 2019-10-11 00:00:00 00:00:00 No Essential hypertension with goal blood pressure less than 140/90 80mg QD Take 1 tablet by mouth daily PLEASE see PCP for future refills. [facility] atorvastatin (LIPITOR) 40 mg tablet 2019-10-11 00:00:0 0 2020-01-18 00:00:00 No Dyslipidemia 40mg Take 1 tablet b y mouth at bedtime nightly Please see pcp for future refills. [facility] metFORMIN (GLUCOPHAGE) 1,000 mg tablet 2019-09-29 3 00:00:00 2020-01-18 00:00:00 No Uncontrolled type 2 diabetes mellitus without complication, without long- term current use of insulin 1000mg Take 1 table t by mouth 2 times daily (with meals) PLEASE see MD for future refills. [facility] glimepiride (AMARYL) 4 mg tablet 2019-09-11 00:00:00 2019-09 00:00:00 No Uncontrolled type 2 diabetes mellitus without complication, without long-term current use of insulin 8mg QD Take 2 tablets by mouth daily (with breakfast) Please see pcp for future refills. [facility] [employer] linaGLIPtin (TRADJENTA) 5 mg tablet 2019-09-09 00:00:0 0 2019-10-11 00:00:00 No Uncontrolled type 2 diabetes mellitus without complication, without long-term current use of insulin 5mg QD Take 1 tablet by mouth daily. [facility] valsartan (DIOVAN) 80 mg tablet 2019-08-13 00:00:00 00:00:00 No Essential hypertension with goal blood pressure less than 140/90 80mg QD Take 1 tablet by mouth daily PLEASE see PCP for future refills. [facility] glimepiride (AMARYL) 4 mg tablet 2019-08-13 00:00:00 2019-08 00:00:00 No Uncontrolled type 2 diabetes mellitus without complication, without long-term current use of insulin 8mg QD Take 2 tablets by mouth daily (with breakfast) Please see pcp for future refills. [facility] metFORMIN (GLUCOPHAGE) 1,000 mg tablet 2019-07-30 0 00:00:00 2019-10-11 00:00:00 No Uncontrolled type 2 diabetes mellitus without complication, without long- term current use of insulin 1000mg Take 1 table t by mouth 2 times daily (with meals) PLEASE see MD for future refills. [facility] atorvastatin (LIPITOR) 40 mg tablet 2019-08-07 00:00:0 0 2019-10-11 00:00:00 No Dyslipidemia 40mg Take 1 tablet b y mouth at bedtime nightly Please see pcp for future refills. [facility] blood glucose (PRECISION XTRA TEST STRIPS) test strips 2019-07-12 00:00:00 2020-01-18 00:00:00 No Uncontrolled type 2 diabetes mellitus without complication, without long-term current use of insulin Use 2 times weekly. [facility] glimepiride (AMARYL) 4 mg tablet 2019-07-09 00:00:00 2019-07 00:00:00 No Uncontrolled type 2 diabetes mellitus without complication, without long-term current use of insulin 8mg QD Take 2 tablets by mouth daily (with breakfast) Please see pcp for future refills. [facility] atorvastatin (LIPITOR) 40 mg tablet 2019-07-09 00:00:0 0 2019-08-05 00:00:00 No Dyslipidemia 40mg Take 1 tablet b y mouth at bedtime nightly Please see pcp for future refills. [facility] hydroCHLOROthiazide (HYDRODIURIL) 25 mg tablet 2 00:00:00 2019-10-11 00:00:00 No Essential hypertension with goal blood pressure less than 140/90 25mg QD Take 1 tablet by mouth daily. [facility] amLODIPine (NORVASC) 10 mg tablet 2019-06-19 00:00:00 2018 00:00:00 No Medication refill 10mg QD Take 1 tablet by mouth daily Please see PCP for future refills. [facility] Valsartan 80 mg tablet 2019-05-14 00:00:00 2019-08-12 00:00: 00 No Essential hypertension with goal blood pressure less than 140/90 80mg QD Take 1 tablet by mouth daily PLEASE see PCP for future refills. [facility] metFORMIN (GLUCOPHAGE) 1,000 mg tablet 2019-04-29 6 00:00:00 2019-08-07 00:00:00 No Uncontrolled type 2 diabetes mellitus without complication, without long- term current use of insulin 1000mg Take 1 table t by mouth 2 times daily (with meals) PLEASE see PCP for future refills. [facility] glimepiride (AMARYL) 4 mg tablet 2019-04-08 00:00:00 2019-06 00:00:00 No Uncontrolled type 2 diabetes mellitus without complication, without long-term current use of insulin 8mg QD Take 2 tablets by mouth daily ( with breakfast). [facility] linagliptin (TRADJENTA) 5 mg tablet 2019-03-16 00:00:0 0 2019-09-09 00:00:00 No Uncontrolled type 2 diabetes mellitus without complication, without long-term current use of insulin 5mg QD Take 1 tablet by mouth daily. [facility] amLODIPine (NORVASC) 10 mg tablet 2019-03-16 00:00:00 2018 00:00:00 No Medication refill 10mg QD Take 1 tablet by mouth daily Please see PCP for future refills. [facility] hydroCHLOROthiazide (HYDRODIURIL) 25 mg tablet 2 00:00:00 2019-07-01 00:00:00 No Essential hypertension with goal blood pressure less than 140/90 25mg QD Take 1 tablet by mouth daily. [facility] naproxen (NAPROSYN) 500 mg tablet 2018-10-05 00:00:00 2019 00:00:00 No Pain of right heel 500mg Take 1 tablet by mouth 2 larry es daily (with meals). [facility] lancets 28 gauge 2018-07-04 00:00:00 2020-01-18 00:00:00 No Uncontrolled type 2 diabetes mellitus without complication, without long-term current use of insulin Use 2 times weekly as directed. [facility] blood glucose (PRECISION XTRA TEST STRIPS) test strips 2018-07-04 00:00:00 2019-07-11 00:00:00 No Uncontrolled type 2 diabetes mellitus without complication, without long-term current use of insulin Use 2 times weekly. [facility] atorvastatin (LIPITOR) 40 mg tablet 2018-07-04 00:00:0 0 2019-07-08 00:00:00 No Dyslipidemia 40mg Take 1 tablet by mouth at bedtime n ightly. [facility] clotrimazole (LOTRIMIN) 1 % topical cream 2016-10 00:00:00 2019-11-04 00:00:00 No Onychomycosis Q.5D Apply to affected area 2 times daily. [facility] blood glucose meter (PRECISION XTRA GLUCOMETER) 2017-09-01 0 0:00:00 Yes Poorly controlled diabetes mellitus Use as directed.. [facility] Immunizations Ordered Immunization Name Filled Immunization Name Date Status Comments Source Influenza, Injectable, Quadrivalent 2019-12-16 00:00:00 Co mpleted [facility] PCV 13 (Pnuemococcal Conjugated 13 Valent) 2019-12-16 00:0 0:00 Completed [facility] Herpes Zoster Vaccine In Clinic 2018-05-30 00:00:00 Comple michelle [facility] Influenza Vaccine, Seasonal, Injectable 2017-09-01 00:00:0 0 Completed [facility] PPV 23 Pneumococcal Polysaccaride 2009-09-10 00:00:00 Comp leted [facility] Td Tetanus, diphtheria Toxoids Vaccine 2007-09-10 00:00:00 Completed [facility] Vital Signs Vital Name Observation Time Observation Value Comments Source Systolic blood pressure 2020-04-20 14:26:00 164 mm[Hg] [facility] Diastolic blood pressure 2020-04-20 14:26:00 69 mm[Hg] [facility] Heart rate 2020-04-20 14:26:00 80 /min [facility] Body temperature 2020-04-20 14:26:00 36.61 Patrizia [facility] Body weight 2020-04-20 14:26:00 84.823 kg [facility] BMI 2020-04-20 14:26:00 28.43 kg/m2 [facility] Respiratory rate 2019-12-16 09:08:00 18 /min [facility] Body height 2019-12-16 09:08:00 172.7 cm [facility] Oxygen saturation in Arterial blood by Pulse oximetry 2018-1016 10:13:00 100 /min [facility] Procedures Procedure Date / Time Performed Performing Clinician Sour e CBC/DIFF 2020-04-20 13:59:00 Wm Ravi [facility] COMPREHENSIVE METABOLIC PANEL 2020-04-20 13:59:00 [facility] CBC 2020-04-20 13:59:00 [facility] 2020-04-20 13:59:00 [facility] 2020-04-20 13:59:[facility] NOT FOR PATH REVIEW 2020-04-20 13:59:00 [facility] BASIC METABOLIC PANEL 2020-01-06 10:36:00 Mayra Treviño [facility] HEMOGLOBIN A1C 2020-01-06 10:36:00 Mayra Treviño [facility] GLUCOSE POC 2019-12-16 10:31:00 Mayra Treviño DIABETIC FOOT EXAM 2019-12-16 10:29:14 Mayra Treviño alth DESTRUCTION OF EXTENSIVE OR PROGRESSIVE RETINOPATHY PHOTOCOAG (LASER OR XENON ARC) 2019-11-08 15:12:56 Dipesh Mclean [facility] FERRITIN 2019-11-04 10:15:00 Mayra Treviño IRON PROFILE 2019-11-04 10:15:00 Mayra Treviño VITAMIN B12 2019-11-04 10:15:00 Mayra Treviño h FOLIC ACID 2019-11-04 10:15:00 Mayra Treviño h FECAL OCCULT BLOOD 2019-10-24 09:52:00 Lourdes Medel willa HEMOGLOBIN A1C 2019-10-18 08:54:00 [facility] 2019-10-18 08:54:00 [facility] COMPREHENSIVE METABOLIC PANEL 2019-10-18 08:54:00 Lourdes Medel [facility] MICROALBUMIN / CREATININE URINE RATIO 2019-10-18 08:54:00 Lourdes Medel [facility] LIPID PROFILE 2019-10-18 08:54:00 Lourdes Medel [facility] CBC 2019-10-18 08:54:00 [facility] Planned Activity Planned Date Details Comments Source Future Scheduled Test 2021-01-16 00:00:00 DM Retinal Exam (Y early) [code = DM Retinal Exam (Yearly)] [facility] Scheduled Test 2021-01-05 00:00:00 Hemoglobin A1c belinda surement (procedure) [code = 70146021] [facility] Scheduled Test 2020-12-16 00:00:00 DM Foot Exam (Year ly) [code = DM Foot Exam (Yearly)] [facility] Scheduled Test 2020-10-24 00:00:00 Screening for sandi gnant neoplasm of colon (procedure) [code = 433837372] [facility] Encounters Start Date/Time End Date/Time Encounter Type Admission Type [facility] Care Department Encounter ID Source 2019-10-14 00:00:00 2019-10-14 00:00:00 Outpatient [facility] [id number] [facility] 2019-04-22 11:15:14 2019-04-22 11:15:14 Outpatient [facility] [id number] [facility] 2019-02-08 10:35:35 2019-02-08 10:35:35 Outpatient [facility] [id number] [facility] 2019-01-07 00:00:00 2019-01-07 00:00:00 Outpatient [facility] [id number] [facility] 2019-01-01 00:00:00 2019-01-01 00:00:00 Outpatient [facility] [id number] [facility] 2018-11-20 09:20:47 2018-11-20 09:20:47 Outpatient [facility] [id number] [facility] 2018-11-20 08:43:07 2018-11-20 08:43:07 Outpatient [facility] [id number] [facility] 2018-10-29 10:11:33 2018-10-29 10:11:33 Outpatient [facility] [id number] [facility] 2018-10-09 00:00:00 2018-10-09 00:00:00 Outpatient [facility] [id number] [facility] 2018-10-05 10:45:33 2018-10-05 10:45:33 Outpatient [facility] [id number] [facility] 2018-09-25 10:01:48 2018-09-25 10:01:48 Outpatient [facility] [id number] [facility] 2018-08-27 14:03:21 2018-08-27 14:03:21 Outpatient [facility] [id number] [facility] 2018-08-27 13:47:38 2018-08-27 13:47:38 Outpatient [facility] [id number] [facility] 2018-08-10 00:00:00 2018-08-10 00:00:00 Outpatient [facility] [id number] [facility] 2018-07-06 00:00:00 2018-07-06 00:00:00 Outpatient [facility] [id number] [facility] 2018-07-04 14:12:02 2018-07-04 14:12:02 Outpatient [facility] [id number] [facility] 2018-07-04 12:59:00 2018-07-04 12:59:00 Outpatient [facility] [id number] [facility] 2018-07-04 00:00:00 2018-07-04 00:00:00 Outpatient [facility] [id number] [facility] 2018-07-03 14:28:10 2018-07-03 14:28:10 Outpatient [facility] [id number] [facility] 2018-06-20 00:00:00 2018-06-20 00:00:00 Outpatient [facility] [id number] [facility] 2018-06-19 00:00:00 2018-06-19 00:00:00 Outpatient [facility] [id number] [facility] 2018-05-30 10:08:03 2018-05-30 10:08:03 Outpatient [facility] [id number] [facility] 2018-05-30 08:11:55 2018-05-30 08:11:55 Outpatient [facility] [id number] [facility] 2018-05-30 00:00:00 2018-05-30 00:00:00 Outpatient [facility] [id number] [facility] 2018-05-11 14:26:12 2018-05-11 14:26:12 Outpatient [facility] [id number] [facility] 2018-05-11 11:55:32 2018-05-11 11:55:32 Outpatient [facility] [id number] [facility] 2018-01-16 00:00:00 2018-01-16 00:00:00 Outpatient [facility] [id number] [facility] 2018-01-09 00:00:00 2018-01-09 00:00:00 Outpatient [facility] [id number] [facility] 2017-12-12 00:00:00 2017-12-12 00:00:00 Outpatient [facility] [id number] [facility] 2017-11-21 00:00:00 2017-11-21 00:00:00 Outpatient [facility] [id number] [facility] 2017-11-09 13:47:43 2017-11-09 13:47:43 Outpatient [facility] [id number] [facility] 2017-10-20 00:00:00 2017-10-20 00:00:00 Outpatient [facility] [id number] [facility] 2017-10-16 14:25:28 2017-10-16 14:25:28 Outpatient [facility] [id number] [facility] 2017-10-12 13:43:45 2017-10-12 13:43:45 Outpatient [facility] [id number] [facility] 2017-09-28 12:45:47 2017-09-28 12:45:47 Outpatient [facility] [id number] [facility] 2017-09-11 10:57:13 2017-09-11 10:57:13 Outpatient [facility] [id number] [facility] 2017-09-11 10:17:41 2017-09-11 10:17:41 Outpatient [facility] [id number] [facility] 2017-09-01 09:04:58 2017-09-01 09:04:58 Outpatient [facility] [id number] [facility] 2017-09-01 07:59:43 2017-09-01 07:59:43 Outpatient [facility] [id number] [facility] 2017-08-02 13:43:12 2017-08-02 13:43:12 Outpatient [facility] [id number] [facility] 2017-08-02 13:25:04 2017-08-02 13:25:04 Outpatient [facility] [id number] [facility] 2017-05-17 00:00:00 2017-05-17 00:00:00 Outpatient [facility] [id number] [facility] 2017-04-18 13:34:10 2017-04-18 13:34:10 Outpatient [facility] [id number] [facility] 2017-04-14 00:00:00 2017-04-14 00:00:00 Outpatient [facility] [id number] [facility] 2017-04-07 12:07:01 2017-04-07 12:07:01 Outpatient [facility] [id number] [facility] 2017-03-16 00:00:00 2017-03-16 00:00:00 Outpatient [facility] [id number] [facility] 2017-03-14 08:53:11 2017-03-14 08:53:11 Outpatient [facility] [id number] [facility] Results Test Description Test Time Test Comments Results Result Comments Source Electroph, Bld 2020-04-22 17:53:00 COMMENTIncre ased albumin and total protein consistent with dehydration. Katie Grider M.D., PhD., Pathologist/[facility] ([id number]) [id number] [facility]ORYProteinComment: 7.2[facility] Ferritin 2020-04-20 21:18:00 Test Item Ferritin (test code = 47833526) 100.9 ng/mL 23.9-336.2 Lab Interpretation (test code = 66400-7) Normal [id number] 16:12:00* Test Item Value Reference Range Interpretation Comments Save Smear (test code = 29631653) Smear stained and [facility] [id number] 14:50:00* Test Item Value Reference Range Interpretation Comments Sodium (test code = 2951-2) 135 mmol/L 136-145 L Potassium (test code = 2823-3) 4.7 mmol/L 3.5-5.1 Chloride (test code = 2075-0) 102 mmol/L 98-107 CO2 (test code = 11673304) 25 mmol/L 21-31 Glucose (test code = 89510414) 353 mg/dL 70-110 H Calcium (test code = 65904745) 9.9 mg/dL 8.6-10.3 Urea Nitrogen (test code = 32280010) 29.0 mg/dL 7-25 H Creatinine (test code = 99133790) 1.0 mg/dL 0.7-1.3 Alkaline Phosphatase (test code = 35803014) 73 U/L 34-104 ALT (test code = 14794005) 22 U/L 7-52 AST (test code = 64301651) 18 U/L 13-39 Total Protein (test code = 2885-2) 7.2 g/dL 6-8.3 GFR, Estimated (test code = 16763502) 75 >=90 mL/min/1.73 m2 L Albumin (test code = 83349-0) 4.5 g/dL 4.2-5.5 Anion Gap (test code = 47598533) 8 mmol/L 5-16 Lab Interpretation (test code = 40014-5) [id number] 14:29:00* Test Item Value Reference Range Interpretation [...] 33.4 g/dL 32-36 RDW (test code = 98595-2) 42.8 fL 35.1-43.9 Platelet (test code = 777-3) 251 K/uL 150-400 Mean Platelet Volume (test code = 65279-5) 9.9 fL 9.4-12.4 Neutrophil (test code = 770-8) 73.8 % 34-67.9 H Lymphs (test code = 736-9) 14.0 % 21.8-50 L Monocytes (test code = 5905-5) 9.1 % 5.3-12 Eos (test code = 713-8) 2.6 % 0.8-5 Basos (test code = 706-2) 0.5 % 0.2-1.2 Immature Granulocytes (test code = 77945094) 0.3 % 0-0.5 Neutrophils (Absolute) (test code = 08323270) 5.37 K/uL 1.78-5.3 6 H Lymphs (Absolute) (test code = 19764064) 1.02 K/uL 1.32-3.57 L Monocytes(Absolute) (test code = 31269939) 0.66 K/uL 0.3-0.82 Eos (Absolute) (test code = 25766492) 0.19 K/uL 0.04-0.54 Baso (Absolute) (test code = 26956690) 0.04 K/uL 0.01-0.08 Immature Grans (Abs) (test code = 86605117) 0.02 K/uL 0-0.03 Lab Interpretation (test code = 14366-5) [facility]normal [facility] [id number] 17:59:00* Test Item Value Reference Range Interpretation Comments Hemoglobin A1c (test code = 4548-4) 8.6 % 4.3-6.1 H Estimated Average Glucose (test code = 79781353) 200 mg/dL 70-11 0 H Lab Interpretation (test code = 09805-0) Abnormal [facility] Metabolic [id number] 15:51:00* Test Item Value Reference Range Interpretation Comments Sodium (test code = 2951-2) 139 mmol/L 136-145 Potassium (test code = 2823-3) 4.8 mmol/L 3.5-5.1 Chloride (test code = 2075-0) 102 mmol/L 98-107 CO2 (test code = 77697457) 29 mmol/L 21-31 Urea Nitrogen (test code = 04637965) 25.0 mg/dL 7-25 Creatinine (test code = 80699773) 1.1 mg/dL 0.7-1.3 Glucose (test code = 87350165) 311 mg/dL 70-110 H Calcium (test code = 07539007) 9.2 mg/dL 8.6-10.3 GFR, Estimated (test code = 66918143) 67 >=90 mL/min/1.73 m2 L Anion Gap (test code = 60898153) 8 mmol/L 5-16 Lab Interpretation (test code = 12532-4) Abnormal [facility] GLUCOSE POC docked [id number] 10:35:00* Test Item Value Reference Range Interpretation Comments Glucose POC (test code = 46134708) 261 mg/dL 74-106 H Lab Interpretation (test code = 24999-6) Abnormal [facility] FOOT [id number] 10:29:14Mayra Treviño MD 12/16/2019 11:18 AMDiabetic Foot Exam was performed at 12/16/2019 10:29 AM. Right foot sensation is normal, right foot pulses are normal, right foot appearance is abnormal. Left foot sensation is normal, left foot pulses are normal, left foot appearance is abnormal. Nail fungus noted [facility] 2019-11-04 16:10:00* Test Item Value Reference Range Interpretation Comments Folic Acid (test code = 89976655) 11.6 ng/mL 5.9-24.8 Lab Interpretation (test code = 02749-4) Normal [facility] Center[facility] [id number] 16:09:00* Test Item Value Reference Range Interpretation Comments Vitamin B12 (test code = 69430852) 550 pg/mL See comment Normal: 180-914 pg/mLIntermittent: 145-180 pg/mLDeficient: <=145.0 pg/mL [facility] [id number] 15:39:00* Test Item Value Reference Range Interpretation Comments Iron (test code = 40465923) 104 ug/dL 50-212 TIBC (test code = 80915387) 317 ug/dL 250-450 % Iron Sat (test code = 03590059) 33 % Transferrin (test code = 63917163) 226.52 mg/dL 203-362 [facility] CenterF[facility] Occult [id number] 09:55:00* Test Item Value Reference Range Interpretation Comments Occult Blood (test code = 58812-7) Negative Negative Lab Interpretation (test code = 07124-8) Normal [facility] CenterLipid [id number] 16:02:00* Test Item Value Reference Range Interpretation Comments Cholesterol (test code = 2093-3) 112.0 mg/dL <=200.0 Triglyceride (test code = 48688665) 112 mg/dL <150 HDL (test code = 2085-9) 41.0 mg/dL See Reference Range Narrative . LDL (test code = 69550-2) 49 mg/dL <100 Op timal: < 100.0 mg/dLNear Optimal: 120-129 mg/dLBorderline: 130-159 mg/dLHigh: 160-189 mg/dLVery High: >=190 mg/dL Patient Fasting? (test code = 00598245) Yes [facility] CenterMicroalb/Crea Ratio,[id number] 14:37:00* Test Item Value Reference Range Interpretation Comments Microalbumin, Random (test code = 76015293) 26.5 mg/dL <30.0 Creatinine, Urine (test code = 86429874) 115 mg/dL 20-370 Urine Microalbumin (test code = 36801289) 230.4 mg/g 0-30 H Lab Interpretation (test code = 16274-0) Abnormal [facility]
--- NOTE | 2020-06-11 15:25 | Emergency Department Note ---
History of Present Illnes History of Present Illness Chief Complaint: COVID PUI History of Present Illness This is a 64 year old male arrives to the ED with complaints of cough fever and generalized malaise of testing positive for Covid 19. Historian: Patient Arrival Mode: Car Onset (how long ago): day(s) Severity: mild Duration (how long): day(s) Progression: worsening Chronicity: new Past Medical/Family History Physician Review I have reviewed the patient's past medical and family history. Any updates have been documented here. Past Medical History Recent Fever: Yes Clinical Suspicion of Infectio: Yes New/Unexplained Change in Ment: Yes Past Medical History: Hypertension, Diabetes, Hyperlipedemia Past Surgical History: None Social History Smoking Cessation: Never Smoker Counseling Performed: No Alcohol Use: None Any Illegal Drug Use: No Physically hurt or threatened: No Other Any Pre-Existing Lines (PICC,: No Review of Systems Review of Systems Constitutional: Reports as per HPI, Reports chills EENTM: Reports no symptoms Cardiovascular: Reports no symptoms Respiratory: Reports as per HPI Gastrointestinal: Reports no symptoms Genitourinary: Reports no symptoms Musculoskeletal: Reports no symptoms Integumentary: Reports no symptoms Neurological: Reports no symptoms Psychological: Reports no symptoms Endocrine: Reports no symptoms Hematological/Lymphatic: Reports no symptoms Physical Exam Related Data Allergies: Coded Allergies: No Known Allergies (Unverified , 06/11/20) Triage Vital Signs Vital Signs Date Time Temp Pulse Resp B/P (MAP) Pulse Ox O2 Delivery O2 Flow Rate FiO2 06/11/20 13:55 99.0 98 28 144/75 96 Room Air Vital signs reviewed: Yes Physical Exam CONSTITUTIONAL Constitutional: Present well-developed, Present well-nourished HENT HENT: Present normocephalic, Present atraumatic, Present oropharynx mook ar/moist, Present nose normal HENT L/R: Present left ext ear normal, Present right ext ear normal EYES Eyes: Reports PERRL, Reports conjunctivae normal NECK Neck: Present ROM normal PULMONARY Pulmonary: Present effort normal, Present respiratory distress CARDIOVASCULAR Cardiovascular: Present regular rhythm, Present heart sounds normal, Present capillary refill normal, Present normal rate GASTROINTESTINAL Abdominal: Present soft, Present nontender, Present bowel sounds normal GENITOURINARY Genitourinary: Present exam deferred SKIN Skin: Present warm, Present dry MUSCULOSKELETAL Musculoskeletal: Present ROM normal NEUROLOGICAL Neurological: Present alert, Present oriented x 3, Present no gross motor or sensory deficits PSYCHOLOGICAL Psychological: Present mood/affect normal, Present judgement normal Results Laboratory Result Diagram: 06/11/20 1351 06/11/20 1351 Laboratory Laboratory Tests Test 06/11/20 14:55 06/11/20 13:51 White Blood Count 5.23 x10e3/uL (4.8-10.8) Red Blood Count 2.93 x10e6/uL (4.3-5.7) Hemoglobin 9.0 g/dL (14.0-18.0) Hematocrit 26.8 % (38.2-49.6) Mean Corpuscular Volume 91.5 fL (81-99) Mean Corpuscular Hemoglobin 30.7 pg (28-32) Mean Corpuscular Hemoglobin Concent 33.6 g/dL (31-35) Red Cell Distribution Width 12.0 % (11.7-14.4) Platelet Count 114 x10e3/uL (140-360) Neutrophils (%) (Auto) 87.9 % (38.7-80.0) Lymphocytes (%) (Auto) 5.2 % (18.0-39.1) Monocytes (%) (Auto) 5.9 % (4.4-11.3) Eosinophils (%) (Auto) 0.0 % (0.0-6.0) Basophils (%) (Auto) 0.2 % (0.0-1.0) Neutrophils # (Auto) 4.6 (2.1-6.9) Lymphocytes # (Auto) 0.3 (1.0-3.2) Monocytes # (Auto) 0.3 (0.2-0.8) Eosinophils # (Auto) 0.0 (0.0-0.4) Basophils # (Auto) 0.0 (0.0-0.1) Absolute Immature Granulocyte (auto 0.04 x10e3/uL (0-0.1) Sodium Level 133 mmol/L (136-145) Potassium Level 3.4 mmol/L (3.5-5.1) Chloride Level 100 mmol/L (98-107) Carbon Dioxide Level 18 mmol/L (22-29) Anion Gap 18.4 mmol/L (8-16) Blood Urea Nitrogen 31 mg/dL (7-26) Creatinine 1.62 mg/dL (0.72-1.25) Estimat Glomerular Filtration Rate 43 ML/MIN (60-) BUN/Creatinine Ratio 19 (6-25) Glucose Level 164 mg/dL (74-118) Calcium Level 8.3 mg/dL (8.4-10.2) Total Bilirubin 0.7 mg/dL (0.2-1.2) Aspartate Amino Transf (AST/SGOT) 28 IU/L (5-34) Alanine Aminotransferase (ALT/SGPT) 21 IU/L (0-55) Alkaline Phosphatase 63 IU/L (40-150) Creatine Kinase 160 IU/L (30-200) Creatine Kinase MB 0.90 ng/mL (0-5.0) Troponin I 0.013 ng/mL (0-0.300) Total Protein 7.3 g/dL (6.5-8.1) Albumin 3.5 g/dL (3.5-5.0) Globulin 3.8 g/dL (2.3-3.5) Albumin/Globulin Ratio 0.9 (0.8-2.0) Lab results reviewed: Yes Imaging Imaging results reviewed: Yes Assessment & Plan Medical Decision Making MDM 64-year-old male arrives to the ED with cough fever chills tested positive for coronavirus. Patient requesting supplemental oxygen. Patient admitted for respiratory monitoring. Zithromax, ceftriaxone and Decadron given in the ER. Assessment & Plan Final Impression: (1) Acute respiratory distress syndrome (ARDS) due to 2019 novel coronavirus Depart Disposition: HOME, SELF-CARE Last Vital Signs Date Time Temp Pulse Resp B/P (MAP) Pulse Ox O2 Delivery O2 Flow Rate FiO2 06/11/20 13:55 99.0 98 28 144/75 96 Room Air Medications in the ED Ceftriaxone Sodium 50 ml @ 100 mls/hr Q24H IV Last administered on 06/11/20at 14:22; Admin Dose 100 MLS/HR; Start 06/11/20 at 14:00; Stop 06/18/20 at 13:59 Azithromycin 250 ml @ 200 mls/hr NOW IV Last administered on 06/11/20at 14:22; Admin Dose 200 MLS/HR; Start 06/11/20 at 14:00; Stop 06/18/20 at 15:15 Dexamethasone Sodium Phosphate 6 mg ONCE ONCE IV ; Start 06/11/20 at 14:00; Stop 06/11/20 at 14:01; Status DC Dexamethasone Sodium Phosphate 6 mg ONCE ONCE IV Last administered on 06/11/20at 14:59; Admin Dose 6 MG; Start 06/11/20 at 15:00; Stop 06/11/20 at 15:01; Status DC JAVAN GONZALES DO Jun 11, 2020 15:25
--- NOTE | 2020-06-11 15:53 | Diagnostic Imaging Report ---
EXAMINATION: CHEST SINGLE (PORTABLE) INDICATION: Viral pneumonia COMPARISON: None FINDINGS: LINES/TUBES:EKG leads overlie the chest. LUNGS:The lungs are moderately inflated. Left basilar consolidative airspace opacities. PLEURA:No pleural effusion or pneumothorax. MEDIASTINUM:The cardiomediastinal silhouette appears normal in size and shape. BONES/SOFT TISSUES:No acute osseous injury. ABDOMEN:No free air under the diaphragm. IMPRESSION: Left basilar pneumonia. Signed by: Zay Escalante MD on 06/11/2020 3:50 PM
[2020-06-11] MEDS ORDERED: ACETAMINOPHEN/CODEINE 300MG - 30MG TAB PO PRN (17:30)
[2020-06-11] MEDS ORDERED: ACETAMINOPHEN 325 MG TAB PO PRN (17:30)
[2020-06-11] MEDS ORDERED: ONDANSETRON HCL INJ 2MG/ML 2ML 2 MG/ML VIAL IV PRN (17:30)
[2020-06-11] MEDS ORDERED: HYDRALAZINE HCL 20 MG/ML VIAL IV PRN (17:30)
[2020-06-11] MEDS ORDERED: POTASSIUM CHLORIDE 20 MEQ TAB CR PO ONE (18:00)
[2020-06-11] MEDS ORDERED: TRADJENTA5 MG PO (18:02)
[2020-06-11] MEDS ORDERED: GLIMEPIRIDE4 MG PO (18:02)
[2020-06-11] MEDS ORDERED: DIOVAN80 MG PO (18:02)
[2020-06-11] MEDS ORDERED: HYDROCHLOROTHIA25 MG PO (18:02)
[2020-06-11] MEDS ORDERED: ATORVASTATIN CA20 MG PO (18:02)
[2020-06-11] MEDS ORDERED: METFORMIN HCL500 MG PO (18:02)
[2020-06-11] MEDS ORDERED: AMLODIPINE BESY10 MG PO (18:02)
--- NOTE | 2020-06-11 18:29 | NUR ---
RECEIVED REPORT FROM THONG GABRIEL. PATIENT ARRIVED TO THE UNIT VIA STRETCHER FROM THE ER @ 1705. PATIENT IN STABLE CONDITION, NO S/S OF DISTRESS NOTED. TELEMETRY APPLIED. IN FLUIDS INFUSING, SITE ASYMPTOMATIC AND PATENT, TRANSPARENT DRESSING C/D/I. BED IN LOWEST POSITION AND LOCKED. CALL LIGHT WITHIN REACH.
[2020-06-11] MEDS ORDERED: DEXTROSE 50% SYRINGE 50 ML IV PRN (18:30)
[2020-06-11] MEDS ORDERED: GUAIFENESIN 600MG/DEXTROMETHORPHAN 30MG TABSR PO PRN (18:45)
--- NOTE | 2020-06-11 19:08 | NUR ---
COMPLETED SHIFT REPORT WITH ONCOMING NIGHT NURSE. PATIENT IN STABLE CONDITION,NO S/S OF DISTRESS NOTED. TELEMETRY APPLIED. IV SITE ASYMPTOMATIC, AND PATENT, TRANSPARENT DRESSING C/D/I. BED IN LOWEST POSITION AND LOCKED. CALL LIGHT WITHIN REACH.
--- NOTE | 2020-06-11 19:21 | Consultation ---
DATE OF CONSULTATION: Pulmonary Critical Care consultation CHIEF COMPLAINT: Positive COVID-19 test. HISTORY OF PRESENT ILLNESS: The patient is a 64-year-old man. He reports myalgias for about 5 to 6 days. He had an outside test, that was positive for COVID. He denies any fevers. He has no shortness of breath or cough. Apparently, he came to the emergency department upon the urging of his children. PAST MEDICAL HISTORY: 1. Hypertension. 2. Diabetes. PAST SURGICAL HISTORY: Eye surgery. SOCIAL HISTORY: The patient is not a drinker. He is not a smoker. FAMILY HISTORY: Diabetes. ALLERGIES: NO KNOWN DRUG ALLERGIES. REVIEW OF SYSTEMS: No headache or fevers. There are some myalgias. No chest pain. No cough or dyspnea. No abdominal pain. No nausea or vomiting. PHYSICAL EXAMINATION: VITAL SIGNS: The patient is afebrile. The vital signs are stable. HEENT: Shows no facial swelling or erythema. LYMPHATIC: Shows no submandibular, cervical, or supraclavicular adenopathy. CARDIAC: Reveals regular rate and rhythm with normal S1, S2. LUNGS: Auscultation of lungs reveals rhonchorous breath sounds bilaterally. There is no wheezing. ABDOMEN: Soft, nontender. There is no rebound or guarding. EXTREMITIES: Shows no leg edema or calf tenderness. There is no cyanosis or clubbing. SKIN: Shows no rashes. NEUROLOGICAL: Shows no focal abnormalities. LABORATORY DATA: BUN to creatinine ratio is 31 to 1.62. The potassium is 3.4. The hemoglobin is 9 and the white blood cell count 5.2. The platelet count is 114. RADIOGRAPHIC DATA: Chest x-ray shows left basilar pneumonia. IMPRESSION: 1. COVID-19 and viral pneumonia. 2. Acute kidney injury. 3. Hypertension. 4. Diabetes. 5. Thrombocytopenia. 6. Anemia. PLAN: 1. Judicious use of IV fluids with repeat electrolytes and creatinine tomorrow. 2. Lovenox. 3. Hold diuretics. 4. Continue prior antihypertensive regimen. 5. The patient does not require dexamethasone because he is not having any respiratory symptoms. 6. The patient is not a candidate for remdesivir at this time. Johnathon Biard MD [facility]/ALYSHA /[id number]
--- NOTE | 2020-06-11 19:30 | NUR ---
SBAR SHIFT REPORT RECEIVED FROM DAYSHIFT NURSE. PATIENT IN STABLE CONDITION, NO S/S OF DISTRESS NOTED. TELEMETRY APPLIED. IV SITEFLUSHES WELL NO S/SX OF INFILTRATION NOTED ASYMPTOMATIC, AND PATENT, TRANSPARENT DRESSING C/D/I. BED IN LOWEST POSITION AND LOCKED. CALL LIGHT WITHIN REACH. CROATIAN SPEAKING ONLY
[2020-06-11] MEDS ORDERED: ATORVASTATIN 40 MG TAB PO SCH (21:00)
[2020-06-11] MEDS ORDERED: ENOXAPARIN SOD INJ 40 MG/0.4 ML SYR SC SCH (21:00)
--- NOTE | 2020-06-11 21:41 | Consultation ---
DATE OF CONSULTATION: HISTORY OF PRESENT ILLNESS: Mr. Bala Cruz is a very pleasant 64-year-old male, comes in with 5 days of fever and chills, but he is currently alert, oriented. He has really no complaints at present time. He is not even hypoxemic, but is COVID-19 is positive. His is also positive. REVIEW OF SYSTEMS: The patient at the present time HEENT: Negative. PULMONARY: Negative. CARDIAC: Negative. All review of systems is unremarkable. The patient was not hypoxemic at present time. PHYSICAL EXAMINATION: GENERAL: He is currently alert, oriented. VITAL SIGNS: Stable, currently afebrile. HEENT: He is not icteric. NECK: Supple. CHEST: Clear. HEART: S1, S2. No murmurs. ABDOMEN: Soft. Bowel sound present. EXTREMITIES: No edema. SKIN: No rash. IMPRESSION: Coronavirus disease-2019, upper respiratory infection, stable. There is really no treatment. We can observe him overnight. The patient will be discharged home if he continued to be doing well. There is no need for antibiotic. There is no need for steroid. We will monitor his oxygenation. Continue with supportive care, vitamin D, vitamin C and zinc. MD MEI Yun/MODL /[id number]
[2020-06-11] MEDS: INSULIN LISPRO 100 UNIT/1 ML 3ML VIAL SQ SCH (23:45)
--- NOTE | 2020-06-12 | NUR ---
PT REQUESTING TO SEE WHO IS ALSO A PATIENT IN ROOM 182, ABLE TO WALK WITHOUT OXYGEN SUPPORT DOWN HALLWAY W/O DIFFICULTY TO VISIT , MASK KEPT IN PLACE SAFETY MAINTAINED
[2020-06-12 04:02] VITALS: BP 124/69
[2020-06-12 04:03] VITALS: BP 124/69
[2020-06-12 04:11] LABS: HEMOGLOBIN 11.9 g/dL (14.0-18.0); LYMPHOCYTES # (AUTO) 0.5 (1.0-3.2); LYMPHOCYTES % 8.6 % (18.0-39.1); MEAN CORPUSCULAR HEMOGLOBIN 31.2 pg (28-32); MONOCYTES # (AUTO) 0.3 (0.2-0.8); MONOCYTES % 6.1 % (4.4-11.3); NEUTROPHILS # (AUTO) 4.4 (2.1-6.9); NEUTROPHILS % 84.5 % (38.7-80.0); PLATELET COUNT 216 x10e3/uL (140-360); RED BLOOD COUNT 3.82 x10e6/uL (4.3-5.7); RED CELL DISTRIBUTION WIDTH 11.9 % (11.7-14.4)
[2020-06-12 04:29] LABS: ALBUMIN/GLOBULIN RATIO 0.8 (0.8-2.0); ANION GAP 15.8 mmol/L (8-16); CALCIUM 8.2 mg/dL (8.4-10.2); CREATININE, SERUM 1.25 mg/dL (0.72-1.25); POTASSIUM 3.8 mmol/L (3.5-5.1)
--- NOTE | 2020-06-12 07:08 | NUR ---
SBAR REPORT GIVEN VERBALLY TO NEXT SHIFT, PATIENT STABLE NO DISTRESS, ROOM AIR, MONTSERRATIAN SPEAKING, TELEMETRY IN PLACE FOR INCREASE SAFETY MEASURES, CALL LIGHT WITHIN REACH, DISCHARGE PLANNING STARTED, PENDING HOME OXYGEN EVALUATION
[2020-06-12 07:30] VITALS: BP 124/66
[2020-06-12] MEDS ORDERED: FAMOTIDINE 20 MG TAB PO SCH ×2 (07:30)
[2020-06-12 07:46] VITALS: BP 124/66
[2020-06-12] MEDS: INSULIN LISPRO 100 UNIT/1 ML 3ML VIAL SQ SCH (08:50)
--- NOTE | 2020-06-12 08:50 | NUR ---
GAVE PACKET OF INFORMATION WITH [facility] [employer] FOR ASSISTANCE WITH LOW TO NO INCOME TO PATIENT. RESOURCES THAT PATIENT MAY BE ABLE TO FOLLOW UP UPON DISCHARGE. PT EDUCATED ON EACH RESOURCE AND UNDERSTANDING HOW TO FOLLOW UP TO SEE IF QUALIFIED FOR EACH RESOURCE.
[2020-06-12] MEDS ORDERED: CHOLECALCIFEROL 400 UNIT TAB PO SCH (09:00)
[2020-06-12] MEDS ORDERED: ENOXAPARIN SOD INJ 40 MG/0.4 ML SYR SC SCH (09:00)
[2020-06-12] MEDS ORDERED: ZINC SULFATE 220 MG CAP PO SCH (09:00)
[2020-06-12] MEDS ORDERED: ASCORBIC ACID 500 MG TAB PO SCH (09:00)
[2020-06-12] MEDS ORDERED: VALSARTAN 80 MG TAB PO SCH (09:00)
[2020-06-12] MEDS ORDERED: HYDROCHLOROTHIAZIDE 25 MG TAB PO SCH (09:00)
[2020-06-12] MEDS ORDERED: AMLODIPINE BESYLATE 10 MG TAB PO SCH (09:00)
[2020-06-12] MEDS ORDERED: DEXAMETHASONE SOD PHOS INJ 4 MG/ML VIAL IV SCH (09:00)
[2020-06-12] MEDS ORDERED: PROVENTIL HFA6.7 GM INH (09:17)
[2020-06-12] MEDS ORDERED: ELIQUIS2.5 MG PO (09:17)
--- NOTE | 2020-06-12 11:35 | NUR ---
Patient received discharge order from Dr. Browne. Patient was given discharge instructions and prescriptions. Patient verbalized understanding with instructions and prescriptions with [facility] letter carrier at bedside. IV was removed at 1100 and covered with a C/D/I dressing. Patient tele was removed and given back to tele. Patient wheeled to car at 1135. Patient had no other issues or complaints.
--- NOTE | 2020-06-12 19:57 | Discharge Summary ---
ADMISSION DIAGNOSES: 1. Coronavirus disease pneumonia, present on admission. 2. Type 2 diabetes. 3. Hypertension. 4. Hyperlipidemia. DISCHARGE DIAGNOSES: 1. Coronavirus disease pneumonia, present on admission. 2. Type 2 diabetes. 3. Hypertension. 4. Hyperlipidemia. HISTORY: Type 2 diabetes, hypertension, and hyperlipidemia. SURGICAL HISTORY: Bilateral cataract surgery. FAMILY HISTORY: The patient's mom had diabetes. SOCIAL HISTORY: Occasional alcohol use. HOSPITAL COURSE: A 64-year-old male, admits with complaints of body aches since , so on Monday he went and got tested for COVID and was found to be positive. He denies shortness of breath, cough, or fever. His also tested positive for COVID and their kids convinced both of them to come to the ER. On admission, the patient was on room air. He was started on Zithromax, Rocephin, Lovenox, and vitamins. ID and Pulmonology were consulted. Chest x-ray showed left basilar pneumonia. The patient was watched overnight and continued to be on room air with no trouble ambulating and no complaints of cough or shortness of breath. He will discharge home with prescriptions for albuterol and Eliquis. He will follow up with primary care and Dr. Irizarry in 1-2 weeks. The patient understands instructions and agrees to plan. Vital signs are stable. The patient is afebrile. Dictated by Ileana Powell NP MD [facility]/ALYSHA /[id number]
--- NOTE | 2020-06-15 07:51 | Progress Note ---
DATE: 06/12/2020 SUBJECTIVE: is feeling better. He has no new complaint. He is down to 3 L. PHYSICAL EXAMINATION: GENERAL: He is currently alert and oriented. VITAL SIGNS: Stable. Currently afebrile. HEENT: He is not icteric. NECK: Supple. CHEST: Clear. HEART: S1, S2. ABDOMEN: Soft. IMPRESSION: COVID-19 improving, to discharge home. The patient has been sick for more than 20 days, there is no need for isolation. Can use Tylenol, oxygen as needed, albuterol as needed inhaler. There is no need for anticoagulation. The patient is not infectious at present time. I answered all his question. He is to see me back in four weeks. MD MEI Yun/ALYSHA /[id number]
== END 2020-06-12 11:35 | disposition home or self-care (01) | DRG 177 ==
LOC: ER 13:40 → ERHOLD 14:36 → IMCU 16:53
PROVIDERS: ADMIT Internal Medicine; ATTEND Internal Medicine
DX: U07.1 COVID-19 (principal); J80 Acute respiratory distress syndrome; J12.89 Other viral pneumonia; N17.9 Acute kidney failure, unspecified; I10 Essential (primary) hypertension; E11.9 Type 2 diabetes mellitus without complications; E78.5 Hyperlipidemia, unspecified; D69.6 Thrombocytopenia, unspecified; D64.9 Anemia, unspecified; Z83.3 Family history of diabetes mellitus; Z79.84 Long term (current) use of oral hypoglycemic drugs
CPT/HCPCS: 36415; 71045; 80053; 82550; 82553; 82948; 83036; 84484; 85025; 87040; 93005; 96372; 99284; J0456; J0696; J1100; J1650; U0002